=== PATIENT | female | born 1955 | race Caucasian/White ===

== ENCOUNTER 2016-11-02 11:14 | Inpatient (IN) | payer OTHER ==
[~2016-11-02] VITALS: Ht 154.9 cm; Wt 97.0 kg
[~2016-11-02 11:14] MED LIST: ACETAMINOPHEN-1 EAC1 PO; AMLODIPINE BESYL5 MG PO; ASPIR-LOW81 MG PO; Aspirin Chewable PO; CARVEDILOL12.5 MG PO; COREG12.5 M1 PO; CYMBALTA20 MG PO; Coreg PO; DOXYCYCLINE HY100 M3 PO; Diabeta,Micronase PO; FURO40I IV; FUROSEMIDE40 MG PO; GABAPENTIN300 MG PO; GLUCOPHAGE1000 MG PO; Glucophage PO; Habitrol,Nicoderm CQ TD; IMDUR30 MG PO; ISOSORBIDE MONO30 MG PO; Imdur PO; Keflex PO; LANTUS 10100 UNITS/ SC; LANTUS 3 M100 UNITS1 SC; LASIX20 MG PO; LASIX40 MG PO; LEVOTHYROXINE100 MCG PO; LIPITOR20 MG PO; LIPITOR40 MG PO; LISINOPRIL10 MG PO; LOPERAMIDE2 MG PO; LYRICA50 MG PO; Lasix PO; Levothroid,Synthroid PO; METFORMIN HCL1000 M1 PO; NAPROSYN375 MG PO; NEURONTIN600 MG PO; NOVOLOG100 UNIT/1 SC; OXYCODONE HCL5 MG PO; OXYCODONE-APAP1 EACH PO; PRINIVIL20 MG PO; PROAIR HFA8.5 GM IH; Pravachol PO; SYNTHROID100 MCG PO; SYNTHROID175 MCG PO; TRAMADOL HCL50 MG PO; ULTRAM50 MG PO; Zestril,Prinivil PO
[2016-11-02 12:20] LABS: BASOPHIL COUNT 0.1 K/uL (0-0.1); EOSINOPHIL (%) 2.4 % (0-5); EOSINOPHIL COUNT 0.3 K/uL (0-0.3); HEMATOCRIT 35.7 % (36.0-46.0); IMMATURE GRANULOCYTE (%) 0.7 % (0.0-0.7); IMMATURE GRANULOCYTE COUNT 0.1 K/uL; INSTRUMENT ABS NEUTROPHIL CT 9.6 K/uL; LYMPHOCYTE COUNT 2.6 K/uL (1.0-2.8); MCH 28.4 PG (29.0-34.0); MCHC 31.1 G/DL (30.0-36.0); MCV 91.3 FL (83-99); MEAN PLAT.VOLUME 9.4 uM^3 (9.5-12.4); MONOCYTE (%) 8.3 % (3-12); MONOCYTE COUNT 1.1 K/uL (0-0.8); NEUTROPHIL (%) 69.4 % (45-76); NEUTROPHIL COUNT 9.6 K/uL (1.8-6.4); PLATELET COUNT 402 K/uL (156-360); RED BLOOD COUNT 3.91 M/uL (3.80-5.20); WHITE BLOOD COUNT 13.8 K/uL (4.1-10.2)
[2016-11-02 12:30] LABS: CHLORIDE 110 mEq/L (99-109); SODIUM 135 mEq/L (136-147)
[2016-11-02 12:33] LABS: GLUCOSE 101 mg/dL (70-99)
[2016-11-02 12:34] LABS: ANION GAP 6 MEQ/L (2-14)
[2016-11-02 12:35] LABS: TOTAL BILIRUBIN 0.3 mg/dL (0.0-1.0)
[2016-11-02 12:36] LABS: ALKALINE PHOSPHATASE 104 IU/L (3-129); GFR ESTIMATE (CALCULATED) 17 mL/min/
[2016-11-02 12:37] LABS: UREA NITROGEN (BUN) 59 mg/dL (9-23)
[2016-11-02 14:42] LABS: ADD MIUA? YES; BILIRUBIN NEGATIVE; BLOOD NEGATIVE; COLOR YELLOW ((YELLOW)); GLUCOSE (STRIP) 50; KETONES NEGATIVE; LEUKOCYTES NEGATIVE; NITRITE NEGATIVE; PROTEIN (STRIP) 100; SPECIFIC GRAVITY 1.009 (1.000-1.030); UROBILINOGEN 0.2 MG/DL (0.2-1.0)
[2016-11-02 14:49] LABS: BACTERIA RARE /HPF; EPITHELIAL CELLS RARE /HPF; MUCUS TRACE /LPF; RED BLOOD CELLS 0-5 /HPF (0-5); UCUL ADDED? NO; WHITE BLOOD CELLS 0-5 /HPF (0-5)
[2016-11-02] MEDS ORDERED: NORVASC5 MG PO (15:49)
[2016-11-02] MEDS ORDERED: LYRICA100 MG PO (15:50)
[2016-11-02] MEDS ORDERED: LO-DOSE ASPIRIN81 M2 PO (15:50)
[2016-11-02] MEDS ORDERED: LASIX20 MG PO (15:51)
[2016-11-02] MEDS ORDERED: TRAMADOL HCL50 MG PO (15:52)
[2016-11-02] MEDS ORDERED: BACTRIM,SEPT1 TABLET PO (15:52)
[2016-11-02] MEDS ORDERED: ZESTRIL20 MG PO (15:53)
[2016-11-02 16:30] LABS: CREATINE KINASE 563 IU/L (1-294); TOTAL CK 563 IU/L (1-294)
[2016-11-02 16:37] LABS: CK-MB 14.3 ng/mL (0.0-4.9)
[2016-11-02 18:43] VITALS: BP 162/96
[2016-11-02 19:41] VITALS: BP 137/72
[2016-11-02 23:35] VITALS: BP 135/73
[2016-11-03 04:01] VITALS: BP 130/70
[2016-11-03 05:45] LABS: BASE EXCESS -5.8 mEq/L (-3 to +3); BICARBONATE 19.4 mEq/L (22-26); CARBOXY HGB 1.8 % (0-5); METHEMOGLOBIN 1.9 % (0-1.5); PCO2 36 mm Hg (35-45); PO2 54 mm Hg (80-100); pH 7.34 (7.35-7.45)
[2016-11-03 05:46] LABS: COMMENTS - BLOOD GASES C+; DEVICE NC; O2 FLOW 3 L/MIN; SITE LR
[2016-11-03 05:51] LABS: HEMATOCRIT 32.4 % (36.0-46.0); MCH 28.4 PG (29.0-34.0); MCHC 31.5 G/DL (30.0-36.0); MCV 90.3 FL (83-99); MEAN PLAT.VOLUME 9.5 uM^3 (9.5-12.4); PLATELET COUNT 393 K/uL (156-360); RBC DIS.WIDTH-CV 13.9 % (11.8-14.6); RBC DIS.WIDTH-SD 45.5 % (39-53); RED BLOOD COUNT 3.59 M/uL (3.80-5.20)
[2016-11-03 06:04] LABS: CHLORIDE 112 mEq/L (99-109); SODIUM 138 mEq/L (136-147)
[2016-11-03 06:07] LABS: D-DIMER ELISA 0.88 mg/L FEU (< 0.57)
[2016-11-03 06:07] LABS: ANION GAP 8 MEQ/L (2-14)
[2016-11-03 06:10] LABS: UREA NITROGEN (BUN) 46 mg/dL (9-23)
[2016-11-03 06:12] LABS: TROP-I INTERPRETATION NEGATIVE; TROPONIN-I 0.01 ng/mL (0.0-0.30)
[2016-11-03 06:21] LABS: GFR ESTIMATE (CALCULATED) 21 mL/min/; GLUCOSE 438 mg/dL (70-99); POTASSIUM 4.6 mEq/L (3.7-5.4)
[2016-11-03 07:46] VITALS: BP 112/56
[2016-11-03 09:49] LABS: ADD MIUA? YES; BILIRUBIN NEGATIVE; BLOOD LARGE; COLOR AMBER ((YELLOW)); GLUCOSE (STRIP) 50; KETONES NEGATIVE; LEUKOCYTES SMALL; NITRITE NEGATIVE; PROTEIN (STRIP) 100; SPECIFIC GRAVITY 1.014 (1.000-1.030); UROBILINOGEN 0.2 MG/DL (0.2-1.0)
[2016-11-03 10:00] LABS: RED BLOOD CELLS TNTC /HPF (0-5)
[2016-11-03 10:01] LABS: BACTERIA 1+ /HPF; EPITHELIAL CELLS 2+ /HPF; MUCUS NONE SEEN /LPF
[2016-11-03 10:02] LABS: CASTS PRESENT /LPF
[2016-11-03 10:11] LABS: AMPHETAMINES QUANT VALUE 0 NG/ML; BARBITUATES QUANT VALUE 0 NG/ML; BENZODIAZEPINES QUANT VALUE 0 NG/ML; BENZODIAZEPINES, URINE SCREEN Negative (200 ng/mL); MARIJUANA QUANT VALUE 0 NG/ML; OPIATES QUANTITATIVE VALUE 0 NG/ML; PHENCYCLIDINE QUANT VALUE 0 NG/ML
[2016-11-03 11:51] VITALS: BP 128/60
[2016-11-03 12:10] LABS: POINT-OF-CARE METER ID UU13113717
[2016-11-03 16:09] VITALS: BP 104/66
[2016-11-03 20:26] VITALS: BP 129/67
[2016-11-03 23:52] VITALS: BP 147/65
[2016-11-04 03:11] LABS: POINT-OF-CARE METER ID UU13113717
[2016-11-04 06:16] LABS: POINT-OF-CARE METER ID UU13113717
[2016-11-04 06:21] LABS: BASOPHIL COUNT 0.1 K/uL (0-0.1); EOSINOPHIL (%) 0.8 % (0-5); EOSINOPHIL COUNT 0.1 K/uL (0-0.3); HEMATOCRIT 27.7 % (36.0-46.0); IMMATURE GRANULOCYTE (%) 0.6 % (0.0-0.7); IMMATURE GRANULOCYTE COUNT 0.1 K/uL; INSTRUMENT ABS NEUTROPHIL CT 8.8 K/uL; LYMPHOCYTE COUNT 2.3 K/uL (1.0-2.8); MCH 29.2 PG (29.0-34.0); MCHC 31.8 G/DL (30.0-36.0); MONOCYTE (%) 9.5 % (3-12); MONOCYTE COUNT 1.2 K/uL (0-0.8); NEUTROPHIL (%) 70.2 % (45-76); NEUTROPHIL COUNT 8.8 K/uL (1.8-6.4); PLATELET COUNT 314 K/uL (156-360); RBC DIS.WIDTH-CV 14.6 % (11.8-14.6); RBC DIS.WIDTH-SD 48.7 % (39-53); RED BLOOD COUNT 3.01 M/uL (3.80-5.20); WHITE BLOOD COUNT 12.5 K/uL (4.1-10.2)
[2016-11-04 06:50] LABS: ANION GAP 6 MEQ/L (2-14); CHLORIDE 113 MEQ/L (99-109); GFR ESTIMATE (CALCULATED) 22 mL/min/; POTASSIUM 4.8 MEQ/L (3.7-5.4); SAMPLE HEMOLYSIS CHECK 0; SAMPLE ICTERIC CHECK 0; SAMPLE LIPEMIA CHECK 0; SODIUM 140 MEQ/L (136-147); UREA NITROGEN (BUN) 43 mg/dL (9-23)
[2016-11-04 06:52] LABS: GLUCOSE 189 mg/dL (70-99)
[2016-11-04 06:57] LABS: VANCOMYCIN, TROUGH 9.5 MCG/ML (10-20)
[2016-11-04 07:59] VITALS: BP 179/79
[2016-11-04 10:03] LABS: POINT-OF-CARE METER ID UU13113717
[2016-11-04 10:20] LABS: Estimated Average Glucose 321 mg/dL (70-123); HEMOGLOBIN A1c (GLYCOHEMOGLOB) 12.8 % HGB (Below 5.7)
[2016-11-04 10:26] LABS: FERRITIN 106 NG/ML (10-291)
[2016-11-04 10:56] LABS: IRON 15 MCG/DL (35-150)
[2016-11-04 11:29] VITALS: BP 121/55
[2016-11-04 11:40] LABS: UR CREATININE CONCENTRATION 101.3 MG/DL; URINE TOTAL PROTEIN 431 MG/DL (0-10)
[2016-11-04 16:07] VITALS: BP 186/96
[2016-11-04 23:27] VITALS: BP 154/70
[2016-11-05 06:34] LABS: EOSINOPHIL (%) 2.6 % (0-5); EOSINOPHIL COUNT 0.3 K/uL (0-0.3); HEMATOCRIT 29.1 % (36.0-46.0); IMMATURE GRANULOCYTE (%) 0.7 % (0.0-0.7); IMMATURE GRANULOCYTE COUNT 0.1 K/uL; INSTRUMENT ABS NEUTROPHIL CT 7.9 K/uL; LYMPHOCYTE COUNT 2.5 K/uL (1.0-2.8); MCH 28.9 PG (29.0-34.0); MCHC 31.3 G/DL (30.0-36.0); MCV 92.4 FL (83-99); MEAN PLAT.VOLUME 9.6 uM^3 (9.5-12.4); MONOCYTE (%) 10.3 % (3-12); MONOCYTE COUNT 1.3 K/uL (0-0.8); NEUTROPHIL (%) 65.7 % (45-76); NEUTROPHIL COUNT 7.9 K/uL (1.8-6.4); PLATELET COUNT 342 K/uL (156-360); RBC DIS.WIDTH-SD 47.2 % (39-53); RED BLOOD COUNT 3.15 M/uL (3.80-5.20); WHITE BLOOD COUNT 12.1 K/uL (4.1-10.2)
[2016-11-05 06:55] LABS: C3 COMPLEMENT 130 MG/DL (58-170); C4 COMPLEMENT 51 MG/DL (10-40)
[2016-11-05 07:06] LABS: ANION GAP 5 MEQ/L (2-14); CHLORIDE 114 MEQ/L (99-109); GFR ESTIMATE (CALCULATED) 30 mL/min/; GLUCOSE 176 mg/dL (70-99); SAMPLE HEMOLYSIS CHECK 0; SAMPLE ICTERIC CHECK 0; SAMPLE LIPEMIA CHECK 0; SODIUM 140 MEQ/L (136-147); UREA NITROGEN (BUN) 34 mg/dL (9-23)
[2016-11-05 07:43] VITALS: BP 195/83
[2016-11-05 08:51] LABS: INTACT PARATHYROID HORMONE 228 pg/mL (10-69)
[2016-11-05 09:12] VITALS: BP 180/78
[2016-11-05 12:34] LABS: POINT-OF-CARE METER ID UU14174225
[2016-11-05 15:09] VITALS: BP 152/91
[2016-11-06] VITALS: BP 165/73
[2016-11-06 07:08] LABS: EOSINOPHIL (%) 2.6 % (0-5); EOSINOPHIL COUNT 0.3 K/uL (0-0.3); HEMATOCRIT 28.8 % (36.0-46.0); IMMATURE GRANULOCYTE (%) 0.5 % (0.0-0.7); IMMATURE GRANULOCYTE COUNT 0.1 K/uL; INSTRUMENT ABS NEUTROPHIL CT 6.5 K/uL; LYMPHOCYTE COUNT 2.5 K/uL (1.0-2.8); MCH 28.6 PG (29.0-34.0); MCHC 31.3 G/DL (30.0-36.0); MCV 91.4 FL (83-99); MEAN PLAT.VOLUME 9.7 uM^3 (9.5-12.4); MONOCYTE (%) 9.7 % (3-12); NEUTROPHIL (%) 62.4 % (45-76); NEUTROPHIL COUNT 6.5 K/uL (1.8-6.4); PLATELET COUNT 363 K/uL (156-360); RBC DIS.WIDTH-CV 14.1 % (11.8-14.6); RBC DIS.WIDTH-SD 47.4 % (39-53); RED BLOOD COUNT 3.15 M/uL (3.80-5.20); WHITE BLOOD COUNT 10.4 K/uL (4.1-10.2)
[2016-11-06 07:30] LABS: ANION GAP 8 MEQ/L (2-14); CHLORIDE 114 MEQ/L (99-109); GFR ESTIMATE (CALCULATED) 35 mL/min/; POTASSIUM 4.8 MEQ/L (3.7-5.4); SAMPLE HEMOLYSIS CHECK 1; SAMPLE ICTERIC CHECK 0; SAMPLE LIPEMIA CHECK 0; SODIUM 144 MEQ/L (136-147); UREA NITROGEN (BUN) 29 mg/dL (9-23)
[2016-11-06 07:33] LABS: GLUCOSE 103 mg/dL (70-99)
[2016-11-06 07:46] VITALS: BP 164/82
[2016-11-06 10:29] LABS: AHBS INDEX 0.13; HBSG INDEX 0.23; HEPATITIS B SURFACE ANTIBODY Nonreactive
[2016-11-06 15:42] VITALS: BP 152/72
[2016-11-06 17:17] LABS: POINT-OF-CARE METER ID UU13113717
[2016-11-07 00:42] VITALS: BP 159/72
[2016-11-07 07:15] LABS: ANION GAP 8 MEQ/L (2-14); CHLORIDE 110 MEQ/L (99-109); GFR ESTIMATE (CALCULATED) 32 mL/min/; GLUCOSE 117 mg/dL (70-99); POTASSIUM 5.3 MEQ/L (3.7-5.4); SAMPLE HEMOLYSIS CHECK 1; SAMPLE ICTERIC CHECK 0; SAMPLE LIPEMIA CHECK 0; SODIUM 140 MEQ/L (136-147); UREA NITROGEN (BUN) 30 mg/dL (9-23)
[2016-11-07 07:47] VITALS: BP 152/70
[2016-11-07 11:58] LABS: POINT-OF-CARE METER ID UU13113717
[2016-11-07] MEDS ORDERED: DOXYCYCLINE HY100 MG PO (12:00)
[2016-11-07] MEDS ORDERED: KEFLEX500 MG PO (12:01)
[2016-11-07] MEDS ORDERED: NORVASC5 MG PO (12:02)
[2016-11-07] MEDS ORDERED: ACIDOPHILUS LA1 EACH PO (12:05)
[2016-11-07] MEDS ORDERED: CALCITRIOL0.25 MCG PO (12:06)
[2016-11-07] MEDS ORDERED: ERGOCALCIF50000 UNIT PO (12:06)
[2016-11-07 12:27] VITALS: BP 148/68
[2016-11-07 14:32] LABS: IFE GEL NO. 85-3
[2016-11-11 11:41] LABS: IFE GEL NO. 86-3
== END 2016-11-07 14:55 | disposition home health service (06) | DRG 602 ==
LOC: EME 11:14 → 5SOUTH 14:20 → EDOF 14:20 → 5SOUTH 16:55
PROVIDERS: Emergency Medicine; Hospitalist; Internal Medicine
DX: L03.115 Cellulitis of right lower limb (principal); L03.116 Cellulitis of left lower limb; G93.41 Metabolic encephalopathy; N17.9 Acute kidney failure, unspecified; E11.622 Type 2 diabetes mellitus with other skin ulcer; L97.829 Non-pressure chronic ulcer of other part of left lower leg with unspecified severity; L97.819 Non-pressure chronic ulcer of other part of right lower leg with unspecified severity; E11.21 Type 2 diabetes mellitus with diabetic nephropathy; E11.22 Type 2 diabetes mellitus with diabetic chronic kidney disease; I13.0 Hypertensive heart and chronic kidney disease with heart failure and stage 1 through stage 4 chronic kidney disease, or unspecified chronic kidney disease; N18.4 Chronic kidney disease, stage 4 (severe); I50.22 Chronic systolic (congestive) heart failure; R09.02 Hypoxemia; E11.42 Type 2 diabetes mellitus with diabetic polyneuropathy; E11.649 Type 2 diabetes mellitus with hypoglycemia without coma; E11.51 Type 2 diabetes mellitus with diabetic peripheral angiopathy without gangrene; D50.9 Iron deficiency anemia, unspecified; N25.81 Secondary hyperparathyroidism of renal origin; J44.9 Chronic obstructive pulmonary disease, unspecified; E55.9 Vitamin D deficiency, unspecified; E03.9 Hypothyroidism, unspecified; F32.9 Major depressive disorder, single episode, unspecified; I25.10 Atherosclerotic heart disease of native coronary artery without angina pectoris; K58.9 Irritable bowel syndrome, unspecified; G43.909 Migraine, unspecified, not intractable, without status migrainosus; R29.6 Repeated falls; I89.0 Lymphedema, not elsewhere classified; M54.5 Low back pain; M19.90 Unspecified osteoarthritis, unspecified site; H40.9 Unspecified glaucoma; B35.3 Tinea pedis; I25.2 Old myocardial infarction; Z79.4 Long term (current) use of insulin; Z86.14 Personal history of Methicillin resistant Staphylococcus aureus infection; Z87.891 Personal history of nicotine dependence; E66.9 Obesity, unspecified; Z68.41 Body mass index [BMI] 40.0-44.9, adult
CPT/HCPCS: 36600; 70450; 71010; 72070; 72100; 76770; 80048; 80053; 80069; 80202; 80306 90; 81003; 82140; 82306; 82550; 82550 91; 82553; 82570; 82607; 82728; 82746; 82803; 82948; 83036; 83540; 83605; 83880; 83970; 84156; 84466; 84484; 85025; 85027; 85379; 85651; 86160; 86334; 86335; 86706; 86803; 87040; 87340; 93005; 93306; 93926; 93970; 94799; 99202; 99281; 99285; A6260; J0690; J1644; J1756; J1815; J1885; J2310; J2543; J3370; J7042; J7050; J7120

== ENCOUNTER 2016-12-18 18:22 | Emergency (ER) | payer OTHER ==
[~2016-12-18] VITALS: Ht 157.5 cm; Wt 105.1 kg
[~2016-12-18 18:22] MED LIST changes: +ACIDOPHILUS LA1 EACH PO; +BACTRIM,SEPT1 TABLET PO; +CALCITRIOL0.25 MCG PO; +DOXYCYCLINE HY100 MG PO; +ERGOCALCIF50000 UNIT PO; +KEFLEX500 MG PO; +LO-DOSE ASPIRIN81 M2 PO; +LYRICA100 MG PO; +NORVASC5 MG PO; +ZESTRIL20 MG PO
[2016-12-18 18:31] VITALS: BP 170/100
[2016-12-18 20:04] LABS: HEMATOCRIT 32.3 % (36.0-46.0); MCH 28.2 PG (29.0-34.0); MCHC 31.6 G/DL (30.0-36.0); MCV 89.2 FL (83-99); PLATELET COUNT 318 K/uL (156-360); RBC DIS.WIDTH-CV 14.1 % (11.8-14.6); RED BLOOD COUNT 3.62 M/uL (3.80-5.20); WHITE BLOOD COUNT 10.5 K/uL (4.1-10.2)
[2016-12-18 20:06] LABS: CARBON DIOXIDE (BICARBONATE) 29.1 MEQ/L (20-31)
[2016-12-18 20:20] LABS: CHLORIDE 107 mEq/L (99-109); POTASSIUM 4.8 mEq/L (3.7-5.4); SODIUM 139 mEq/L (136-147)
[2016-12-18 20:22] LABS: GLUCOSE 250 mg/dL (70-99)
[2016-12-18 20:23] LABS: ANION GAP 9 MEQ/L (2-14)
[2016-12-18 20:25] LABS: GFR ESTIMATE (CALCULATED) 23 mL/min/
[2016-12-18 20:26] LABS: UREA NITROGEN (BUN) 28 mg/dL (9-23)
[2016-12-18 20:34] LABS: TROP-I INTERPRETATION NEGATIVE; TROPONIN-I 0.02 ng/mL (0.0-0.30)
[2016-12-19] MEDS ORDERED: LANTUS 3 M100 UNITS1 SC (22:42)
[2016-12-19] MEDS ORDERED: FUROSEMIDE20 MG PO (22:43)
[2016-12-19] MEDS ORDERED: TRAMADOL HCL50 MG PO (22:43)
== END 2016-12-18 21:58 | disposition home or self-care (01) ==
LOC: EME 18:22
PROVIDERS: Emergency Medicine
DX: I50.9 Heart failure, unspecified (principal); R09.02 Hypoxemia; J44.9 Chronic obstructive pulmonary disease, unspecified; I25.2 Old myocardial infarction; E78.5 Hyperlipidemia, unspecified; Z79.82 Long term (current) use of aspirin; Z87.891 Personal history of nicotine dependence
CPT/HCPCS: 71020; 80048; 82803; 83605; 83880; 84484; 85027; 85379; 87040; 93005; 94640; 99281; 99284; J1940

== ENCOUNTER 2016-12-19 16:43 | Inpatient (IN) | payer OTHER ==
[~2016-12-19] VITALS: Ht 157.5 cm; Wt 103.9 kg
[2016-12-19 18:24] LABS: BASOPHIL COUNT 0.1 K/uL (0-0.1); EOSINOPHIL (%) 2.1 % (0-5); EOSINOPHIL COUNT 0.2 K/uL (0-0.3); HEMATOCRIT 30.5 % (36.0-46.0); IMMATURE GRANULOCYTE (%) 0.3 % (0.0-0.7); INSTRUMENT ABS NEUTROPHIL CT 6.1 K/uL; LYMPHOCYTE COUNT 2.9 K/uL (1.0-2.8); MCH 28.3 PG (29.0-34.0); MCHC 31.8 G/DL (30.0-36.0); MCV 88.9 FL (83-99); MONOCYTE (%) 8.7 % (3-12); MONOCYTE COUNT 0.9 K/uL (0-0.8); NEUTROPHIL COUNT 6.1 K/uL (1.8-6.4); RBC DIS.WIDTH-CV 14.2 % (11.8-14.6); RED BLOOD COUNT 3.43 M/uL (3.80-5.20); WHITE BLOOD COUNT 10.1 K/uL (4.1-10.2)
[2016-12-19 18:30] LABS: CHLORIDE 104 mEq/L (99-109); POTASSIUM 4.5 mEq/L (3.7-5.4); SODIUM 137 mEq/L (136-147)
[2016-12-19 18:32] LABS: GLUCOSE 255 mg/dL (70-99)
[2016-12-19 18:33] LABS: ANION GAP 8 MEQ/L (2-14)
[2016-12-19 18:36] LABS: GFR ESTIMATE (CALCULATED) 25 mL/min/
[2016-12-19 18:37] LABS: UREA NITROGEN (BUN) 26 mg/dL (9-23)
[2016-12-19 18:40] LABS: TROP-I INTERPRETATION NEGATIVE; TROPONIN-I 0.01 ng/mL (0.0-0.30)
[2016-12-19 19:23] LABS: MEAN PLAT.VOLUME 10.3 uM^3 (9.5-12.4); PLAT.SUFFICIENCY ADEQUATE
[2016-12-19 19:26] LABS: PLATELET COUNT 216 K/uL (156-360)
[2016-12-19 21:20] LABS: ADD MIUA? YES; BILIRUBIN NEGATIVE; BLOOD SMALL; COLOR YELLOW ((YELLOW)); GLUCOSE (STRIP) >=500; KETONES NEGATIVE; LEUKOCYTES NEGATIVE; NITRITE NEGATIVE; PROTEIN (STRIP) >=500; SPECIFIC GRAVITY 1.014 (1.000-1.030); UROBILINOGEN 0.2 MG/DL (0.2-1.0)
[2016-12-19 21:27] LABS: BACTERIA NONE SEEN /HPF; EPITHELIAL CELLS 1+ /HPF; GRANULAR CASTS 0-5 /LPF; MUCUS TRACE /LPF; RED BLOOD CELLS 0-5 /HPF (0-5); UCUL ADDED? NO; WHITE BLOOD CELLS 0-5 /HPF (0-5)
[2016-12-19] MEDS ORDERED: LANTUS 3 M100 UNITS1 SC (22:42)
[2016-12-19] MEDS ORDERED: TRAMADOL HCL50 MG PO (22:43)
[2016-12-19] MEDS ORDERED: FUROSEMIDE20 MG PO (22:43)
[2016-12-19 23:43] VITALS: BP 162/84
[2016-12-20 01:46] LABS: TROP-I INTERPRETATION NEGATIVE; TROPONIN-I 0.01 ng/mL (0.0-0.30)
[2016-12-20 04:00] VITALS: BP 154/72
[2016-12-20 05:48] LABS: TROP-I INTERPRETATION NEGATIVE; TROPONIN-I 0.02 ng/mL (0.0-0.30)
[2016-12-20 08:51] VITALS: BP 193/83
[2016-12-20 09:40] VITALS: BP 140/70
[2016-12-20 12:43] LABS: POINT-OF-CARE METER ID UU14162513
== END 2016-12-20 14:10 | disposition left against medical advice (07) | DRG 292 ==
LOC: EME 16:43 → EDOF 22:29 → 5WEST 22:29 → EDOF 22:29 → ENRESERV 22:31 → 5WEST 23:27 → ENRESERV 12-20 12:10 → 5WEST 12-20 14:10
PROVIDERS: Emergency Medicine; Hospitalist
DX: I50.9 Heart failure, unspecified (principal); N17.9 Acute kidney failure, unspecified; Z68.41 Body mass index [BMI] 40.0-44.9, adult; I13.0 Hypertensive heart and chronic kidney disease with heart failure and stage 1 through stage 4 chronic kidney disease, or unspecified chronic kidney disease; E11.22 Type 2 diabetes mellitus with diabetic chronic kidney disease; I25.2 Old myocardial infarction; R09.02 Hypoxemia; F41.9 Anxiety disorder, unspecified; R79.1 Abnormal coagulation profile; F32.9 Major depressive disorder, single episode, unspecified; N18.9 Chronic kidney disease, unspecified; E66.9 Obesity, unspecified; E78.5 Hyperlipidemia, unspecified; J44.9 Chronic obstructive pulmonary disease, unspecified; E03.9 Hypothyroidism, unspecified; E11.40 Type 2 diabetes mellitus with diabetic neuropathy, unspecified; Z87.891 Personal history of nicotine dependence; Z91.14 Patient's other noncompliance with medication regimen
CPT/HCPCS: 71020; 78582; 80048; 81003; 82803; 82948; 83605; 83880; 84484; 85025; 85027; 85379; 85610; 85730; 87040; 93005; 94640; 94799; 99281; 99284; 99285; A9540; A9567; G0378; J1644; J1940; J7030

== ENCOUNTER 2017-07-28 13:30 | Inpatient (IN) | payer OTHER ==
[~2017-07-28] VITALS: Ht 157.5 cm; Wt 92.1 kg
[~2017-07-28 13:30] MED LIST changes: -SYNTHROID175 MCG PO; +SYNTHROID200 MCG PO
[2017-07-28 15:52] LABS: HEMATOCRIT 33.9 % (36.0-46.0); HEMOGLOBIN 10.8 G/DL (11.9-15.5); MCH 26.3 PG (29.0-34.0); MCHC 31.9 G/DL (30.0-36.0); MCV 82.5 FL (83-99); PLATELET COUNT 253 K/uL (156-360); RBC DIS.WIDTH-CV 17.4 % (11.8-14.6); RBC DIS.WIDTH-SD 52.4 % (39-53); RED BLOOD COUNT 4.11 M/uL (3.80-5.20); WHITE BLOOD COUNT 21.2 K/uL (4.1-10.2)
[2017-07-28 16:01] LABS: ALBUMIN 2.6 g/dL (3.2-4.8); CHLORIDE 112 mEq/L (99-109); POTASSIUM 4.4 mEq/L (3.7-5.4); SODIUM 139 mEq/L (136-147)
[2017-07-28 16:03] LABS: GLUCOSE 98 mg/dL (70-99)
[2017-07-28 16:04] LABS: TOTAL PROTEIN 6.4 g/dL (6.4-8.3)
[2017-07-28 16:05] LABS: TOTAL BILIRUBIN 0.3 mg/dL (0.0-1.0)
[2017-07-28 16:07] LABS: ALKALINE PHOSPHATASE 95 IU/L (3-129); CREATININE 2.1 mg/dL (0.6-1.3); GFR ESTIMATE (CALCULATED) 25 mL/min/
[2017-07-28 16:08] LABS: UREA NITROGEN (BUN) 34 mg/dL (9-23)
[2017-07-28 16:09] LABS: AST (GOT) 19 IU/L (2-34)
[2017-07-28 16:10] LABS: ALT (GPT) 14 IU/L (3-49)
[2017-07-28 16:20] LABS: APPEARANCE CLOUDY ((CLEAR)); BILIRUBIN NEGATIVE; BLOOD SMALL; COLOR YELLOW ((YELLOW)); GLUCOSE (STRIP) 50; KETONES NEGATIVE; LEUKOCYTES LARGE; NITRITE NEGATIVE; PROTEIN (STRIP) >=500; SPECIFIC GRAVITY 1.013 (1.000-1.030); UROBILINOGEN 0.2 MG/DL (0.2-1.0)
[2017-07-28 17:06] LABS: RED BLOOD CELLS RARE /HPF (0-5)
[2017-07-28 17:07] LABS: EPITHELIAL CELLS 2+ /HPF; MUCUS NONE SEEN /LPF; WHITE BLOOD CELLS 30-40 /HPF (0-5)
[2017-07-28 17:08] LABS: AMORPHOUS URATES CRYSTALS 1+; BACTERIA 2+ /HPF; UCUL ADDED? YES
[2017-07-28 17:44] LABS: TROP-I INTERPRETATION NEGATIVE; TROPONIN-I 0.02 ng/mL (0.0-0.30)
[2017-07-28] MEDS ORDERED: AMLODIPINE BESYL5 MG PO (19:24)
[2017-07-28] MEDS ORDERED: ERGOCALCIF50000 UNIT PO (19:26)
[2017-07-28] MEDS ORDERED: LEVOTHYROXINE25 MCG PO (19:34)
[2017-07-28] MEDS ORDERED: LANTUS 10100 UNITS/ SC (19:34)
[2017-07-28] MEDS ORDERED: NOVOLOG 10100 UNITS/ SC (19:35)
[2017-07-28] MEDS ORDERED: LISINOPRIL20 MG PO (19:36)
[2017-07-28 23:42] VITALS: BP 157/81
[2017-07-29 03:56] VITALS: BP 166/70
[2017-07-29 06:04] LABS: HEMATOCRIT 33.5 % (36.0-46.0); HEMOGLOBIN 10.5 G/DL (11.9-15.5); MCH 26.1 PG (29.0-34.0); MCHC 31.3 G/DL (30.0-36.0); MCV 83.1 FL (83-99); PLATELET COUNT 283 K/uL (156-360); RBC DIS.WIDTH-CV 17.9 % (11.8-14.6); RBC DIS.WIDTH-SD 54.2 % (39-53); RED BLOOD COUNT 4.03 M/uL (3.80-5.20); WHITE BLOOD COUNT 17.1 K/uL (4.1-10.2)
[2017-07-29 06:21] LABS: CHLORIDE 114 MEQ/L (99-109); CREATININE 1.9 MG/DL (0.6-1.3); GFR ESTIMATE (CALCULATED) 28 mL/min/; POTASSIUM 3.9 MEQ/L (3.7-5.4); SODIUM 140 MEQ/L (136-147); UREA NITROGEN (BUN) 30 mg/dL (9-23)
[2017-07-29 06:28] LABS: GLUCOSE 49 mg/dL (70-99)
[2017-07-29 08:04] VITALS: BP 148/86
[2017-07-29 12:36] VITALS: BP 170/78
[2017-07-29 16:00] VITALS: BP 132/63
[2017-07-29 19:24] VITALS: BP 152/68
[2017-07-29 23:41] VITALS: BP 140/70
[2017-07-30 03:49] VITALS: BP 168/77
[2017-07-30 06:16] LABS: HEMATOCRIT 33.3 % (36.0-46.0); HEMOGLOBIN 10.4 G/DL (11.9-15.5); MCH 26.1 PG (29.0-34.0); MCHC 31.2 G/DL (30.0-36.0); MCV 83.7 FL (83-99); PLATELET COUNT 307 K/uL (156-360); RBC DIS.WIDTH-CV 18.2 % (11.8-14.6); RBC DIS.WIDTH-SD 55.5 % (39-53); RED BLOOD COUNT 3.98 M/uL (3.80-5.20); WHITE BLOOD COUNT 15.7 K/uL (4.1-10.2)
[2017-07-30 06:50] LABS: CHLORIDE 115 MEQ/L (99-109); CREATININE 1.8 MG/DL (0.6-1.3); GFR ESTIMATE (CALCULATED) 30 mL/min/; POTASSIUM 3.9 MEQ/L (3.7-5.4); SODIUM 142 MEQ/L (136-147); UREA NITROGEN (BUN) 27 mg/dL (9-23)
[2017-07-30 06:54] LABS: GLUCOSE 129 mg/dL (70-99); PREALBUMIN 4.6 mg/dL (10-40)
[2017-07-30 07:09] VITALS: BP 173/81
[2017-07-30 11:08] VITALS: BP 177/85
[2017-07-30 15:05] VITALS: BP 138/80
[2017-07-30 19:47] VITALS: BP 169/76
[2017-07-30 23:57] VITALS: BP 113/62
[2017-07-31 03:45] VITALS: BP 143/82
[2017-07-31 06:30] LABS: ALBUMIN 2.1 G/DL (3.2-4.8); CHLORIDE 113 MEQ/L (99-109); CREATININE 1.8 MG/DL (0.6-1.3); GFR ESTIMATE (CALCULATED) 30 mL/min/; GLUCOSE 166 mg/dL (70-99); PHOSPHORUS 2.8 mg/dL (2.5-4.9); SODIUM 141 MEQ/L (136-147); UREA NITROGEN (BUN) 28 mg/dL (9-23)
[2017-07-31 07:11] VITALS: BP 150/80
[2017-07-31 07:56] LABS: BASOPHIL (%) 0.5 % (0-1); BASOPHIL COUNT 0.1 K/uL (0-0.1); EOSINOPHIL (%) 1.2 % (0-5); EOSINOPHIL COUNT 0.2 K/uL (0-0.3); HEMATOCRIT 34.1 % (36.0-46.0); HEMOGLOBIN 10.6 G/DL (11.9-15.5); IMMATURE GRANULOCYTE (%) 0.6 % (0.0-0.7); LYMPHOCYTE (%) 12.1 % (15-42); LYMPHOCYTE COUNT 1.7 K/uL (1.0-2.8); MCH 26.2 PG (29.0-34.0); MCHC 31.1 G/DL (30.0-36.0); MCV 84.4 FL (83-99); MONOCYTE (%) 6.1 % (3-12); MONOCYTE COUNT 0.9 K/uL (0-0.8); NEUTROPHIL (%) 79.5 % (45-76); NEUTROPHIL COUNT 11.2 K/uL (1.8-6.4); PLATELET COUNT 357 K/uL (156-360); RBC DIS.WIDTH-CV 18.6 % (11.8-14.6); RBC DIS.WIDTH-SD 57.7 % (39-53); RED BLOOD COUNT 4.04 M/uL (3.80-5.20); WHITE BLOOD COUNT 14.1 K/uL (4.1-10.2)
[2017-07-31 11:36] VITALS: BP 138/76
[2017-07-31 18:51] VITALS: BP 130/71
[2017-07-31 20:04] VITALS: BP 176/70
[2017-07-31 23:59] VITALS: BP 170/64
[2017-08-01 03:55] VITALS: BP 160/80
[2017-08-01 06:05] LABS: HEMATOCRIT 32.2 % (36.0-46.0); MCH 26.2 PG (29.0-34.0); MCHC 31.1 G/DL (30.0-36.0); MCV 84.3 FL (83-99); PLATELET COUNT 347 K/uL (156-360); RBC DIS.WIDTH-CV 18.3 % (11.8-14.6); RBC DIS.WIDTH-SD 55.8 % (39-53); RED BLOOD COUNT 3.82 M/uL (3.80-5.20); WHITE BLOOD COUNT 15.8 K/uL (4.1-10.2)
[2017-08-01 06:28] LABS: CHLORIDE 109 MEQ/L (99-109); CREATININE 1.9 MG/DL (0.6-1.3); GFR ESTIMATE (CALCULATED) 28 mL/min/; GLUCOSE 193 mg/dL (70-99); POTASSIUM 4.3 MEQ/L (3.7-5.4); SODIUM 138 MEQ/L (136-147); UREA NITROGEN (BUN) 28 mg/dL (9-23)
[2017-08-01 08:25] VITALS: BP 158/81
[2017-08-01 11:30] VITALS: BP 148/76
[2017-08-01 18:11] VITALS: BP 162/82
[2017-08-01 19:26] VITALS: BP 156/78
[2017-08-01 23:51] VITALS: BP 160/76
[2017-08-02 03:51] VITALS: BP 170/72
[2017-08-02 06:13] LABS: HEMATOCRIT 31.2 % (36.0-46.0); HEMOGLOBIN 9.5 G/DL (11.9-15.5); MCH 25.1 PG (29.0-34.0); MCHC 30.4 G/DL (30.0-36.0); MCV 82.5 FL (83-99); PLATELET COUNT 313 K/uL (156-360); RBC DIS.WIDTH-CV 17.8 % (11.8-14.6); RBC DIS.WIDTH-SD 53.9 % (39-53); RED BLOOD COUNT 3.78 M/uL (3.80-5.20); WHITE BLOOD COUNT 12.1 K/uL (4.1-10.2)
[2017-08-02 06:35] LABS: CHLORIDE 108 MEQ/L (99-109); CREATININE 1.8 MG/DL (0.6-1.3); GFR ESTIMATE (CALCULATED) 30 mL/min/; GLUCOSE 169 mg/dL (70-99); POTASSIUM 4.1 MEQ/L (3.7-5.4); SODIUM 136 MEQ/L (136-147); UREA NITROGEN (BUN) 31 mg/dL (9-23)
[2017-08-02 07:24] VITALS: BP 189/88
[2017-08-02 15:35] VITALS: BP 188/74
[2017-08-03 00:31] VITALS: BP 160/80
[2017-08-03 06:37] LABS: HEMATOCRIT 29.1 % (36.0-46.0); MCH 25.8 PG (29.0-34.0); MCHC 30.9 G/DL (30.0-36.0); MCV 83.4 FL (83-99); PLATELET COUNT 285 K/uL (156-360); RBC DIS.WIDTH-CV 17.8 % (11.8-14.6); RBC DIS.WIDTH-SD 53.3 % (39-53); RED BLOOD COUNT 3.49 M/uL (3.80-5.20); WHITE BLOOD COUNT 10.1 K/uL (4.1-10.2)
[2017-08-03 07:01] LABS: CHLORIDE 106 MEQ/L (99-109); CREATININE 1.8 MG/DL (0.6-1.3); GFR ESTIMATE (CALCULATED) 30 mL/min/; GLUCOSE 201 mg/dL (70-99); POTASSIUM 3.9 MEQ/L (3.7-5.4); SODIUM 134 MEQ/L (136-147); UREA NITROGEN (BUN) 33 mg/dL (9-23)
[2017-08-03 08:00] VITALS: BP 118/68
[2017-08-03] MEDS ORDERED: CARVEDILOL12.5 MG PO (12:30)
[2017-08-03] MEDS ORDERED: LANTUS 10100 UNITS/ SC (12:30)
[2017-08-03] MEDS ORDERED: DOXYCYCLINE HY100 MG PO (12:30)
[2017-08-03] MEDS ORDERED: IMDUR60 MG PO (12:30)
[2017-08-03 16:01] VITALS: BP 174/79
[2017-08-03 20:21] VITALS: BP 188/85
[2017-08-04] VITALS: BP 156/78
[2017-08-04 06:59] LABS: BASOPHIL (%) 0.6 % (0-1); BASOPHIL COUNT 0.1 K/uL (0-0.1); EOSINOPHIL (%) 2.8 % (0-5); EOSINOPHIL COUNT 0.3 K/uL (0-0.3); HEMATOCRIT 31.4 % (36.0-46.0); HEMOGLOBIN 9.7 G/DL (11.9-15.5); IMMATURE GRANULOCYTE (%) 0.7 % (0.0-0.7); LYMPHOCYTE COUNT 2.1 K/uL (1.0-2.8); MCH 25.8 PG (29.0-34.0); MCHC 30.9 G/DL (30.0-36.0); MCV 83.5 FL (83-99); MONOCYTE (%) 9.5 % (3-12); MONOCYTE COUNT 0.9 K/uL (0-0.8); NEUTROPHIL (%) 64.4 % (45-76); NEUTROPHIL COUNT 6.1 K/uL (1.8-6.4); PLATELET COUNT 308 K/uL (156-360); RBC DIS.WIDTH-CV 17.9 % (11.8-14.6); RBC DIS.WIDTH-SD 53.8 % (39-53); RED BLOOD COUNT 3.76 M/uL (3.80-5.20); WHITE BLOOD COUNT 9.5 K/uL (4.1-10.2)
[2017-08-04 07:22] LABS: CHLORIDE 108 MEQ/L (99-109); CREATININE 1.9 MG/DL (0.6-1.3); GFR ESTIMATE (CALCULATED) 28 mL/min/; POTASSIUM 4.6 MEQ/L (3.7-5.4); SODIUM 139 MEQ/L (136-147); UREA NITROGEN (BUN) 34 mg/dL (9-23)
[2017-08-04 07:31] LABS: GLUCOSE 79 mg/dL (70-99)
[2017-08-04 08:13] VITALS: BP 156/80
[2017-08-04 15:05] VITALS: BP 152/69
[2017-08-04] MEDS ORDERED: VASHE WOUND S1000 ML IR (15:58)
== END 2017-08-04 16:03 | disposition home health service (06) | DRG 602 ==
LOC: EME 13:30 → 5SOUTH 19:55 → EDOF 19:55 → ENRESERV 19:57 → 5SOUTH 21:05
PROVIDERS: Emergency Medicine Emergency Medical Services; Hospitalist; Internal Medicine; Physician Assistant; Physician Assistant Medical
PROC: 0H98XZZ Drainage of Buttock Skin, External Approach (ICD-10-PCS; principal; 2017-07-28)
DX: L02.31 Cutaneous abscess of buttock (principal); G93.49 Other encephalopathy; E87.2 Acidosis; N39.0 Urinary tract infection, site not specified; I13.0 Hypertensive heart and chronic kidney disease with heart failure and stage 1 through stage 4 chronic kidney disease, or unspecified chronic kidney disease; I50.23 Acute on chronic systolic (congestive) heart failure; N18.3 Chronic kidney disease, stage 3 (moderate); E11.22 Type 2 diabetes mellitus with diabetic chronic kidney disease; E11.21 Type 2 diabetes mellitus with diabetic nephropathy; E11.42 Type 2 diabetes mellitus with diabetic polyneuropathy; E11.51 Type 2 diabetes mellitus with diabetic peripheral angiopathy without gangrene; E11.649 Type 2 diabetes mellitus with hypoglycemia without coma; L89.320 Pressure ulcer of left buttock, unstageable; L89.310 Pressure ulcer of right buttock, unstageable; L89.610 Pressure ulcer of right heel, unstageable; L89.620 Pressure ulcer of left heel, unstageable; L03.116 Cellulitis of left lower limb; L03.115 Cellulitis of right lower limb; S91.105A Unspecified open wound of left lesser toe(s) without damage to nail, initial encounter; B95.62 Methicillin resistant Staphylococcus aureus infection as the cause of diseases classified elsewhere; B96.4 Proteus (mirabilis) (morganii) as the cause of diseases classified elsewhere; B95.4 Other streptococcus as the cause of diseases classified elsewhere; I25.10 Atherosclerotic heart disease of native coronary artery without angina pectoris; E78.5 Hyperlipidemia, unspecified; E03.9 Hypothyroidism, unspecified; I87.8 Other specified disorders of veins; J44.9 Chronic obstructive pulmonary disease, unspecified; Z53.20 Procedure and treatment not carried out because of patient's decision for unspecified reasons; I25.2 Old myocardial infarction; Z95.810 Presence of automatic (implantable) cardiac defibrillator; Z79.4 Long term (current) use of insulin; Z79.82 Long term (current) use of aspirin; Z86.14 Personal history of Methicillin resistant Staphylococcus aureus infection; Z87.891 Personal history of nicotine dependence
CPT/HCPCS: 71045; 73630; 74176; 80048; 80053; 80069; 80202; 81003; 82948; 83605; 84134; 84484; 85025; 85027; 87040; 87086; 93005; 93925; 94760; 94799; 97530 GP; 99202; 99281; 99285; A6214; A6260; J0696; J1644; J1815; J1940; J3370; J7040

== ENCOUNTER 2017-08-12 02:15 | Observation (INO) | payer OTHER ==
[~2017-08-12] VITALS: Ht 165.1 cm; Wt 97.6 kg
[~2017-08-12 02:15] MED LIST changes: +IMDUR60 MG PO; +LEVOTHYROXINE25 MCG PO; +LISINOPRIL20 MG PO; +NOVOLOG 10100 UNITS/ SC; +VASHE WOUND S1000 ML IR
[2017-08-12 03:07] LABS: BASOPHIL (%) 0.8 % (0-1); BASOPHIL COUNT 0.1 K/uL (0-0.1); EOSINOPHIL (%) 1.6 % (0-5); EOSINOPHIL COUNT 0.1 K/uL (0-0.3); HEMATOCRIT 25.4 % (36.0-46.0); IMMATURE GRANULOCYTE (%) 0.8 % (0.0-0.7); LYMPHOCYTE (%) 17.7 % (15-42); LYMPHOCYTE COUNT 1.1 K/uL (1.0-2.8); MCH 26.8 PG (29.0-34.0); MCHC 31.5 G/DL (30.0-36.0); MCV 84.9 FL (83-99); MONOCYTE (%) 10.4 % (3-12); MONOCYTE COUNT 0.7 K/uL (0-0.8); NEUTROPHIL (%) 68.7 % (45-76); NEUTROPHIL COUNT 4.4 K/uL (1.8-6.4); RBC DIS.WIDTH-CV 17.6 % (11.8-14.6); RED BLOOD COUNT 2.99 M/uL (3.80-5.20); WHITE BLOOD COUNT 6.4 K/uL (4.1-10.2)
[2017-08-12 03:09] LABS: CHLORIDE 108 mEq/L (99-109); POTASSIUM 3.8 mEq/L (3.7-5.4); SODIUM 140 mEq/L (136-147)
[2017-08-12 03:15] LABS: CREATININE 1.7 mg/dL (0.6-1.3); GFR ESTIMATE (CALCULATED) 32 mL/min/
[2017-08-12 03:16] LABS: GLUCOSE 31 mg/dL (70-99); UREA NITROGEN (BUN) 38 mg/dL (9-23)
[2017-08-12 06:33] LABS: PLAT.SUFFICIENCY ADEQUATE
[2017-08-12 06:46] LABS: PLATELET COUNT 178 K/uL (156-360)
[2017-08-12 08:53] LABS: APPEARANCE SL.HAZY ((CLEAR)); BILIRUBIN NEGATIVE; BLOOD SMALL; COLOR YELLOW ((YELLOW)); GLUCOSE (STRIP) NEGATIVE; KETONES NEGATIVE; LEUKOCYTES NEGATIVE; NITRITE NEGATIVE; PROTEIN (STRIP) >=500; SPECIFIC GRAVITY 1.015 (1.000-1.030); UROBILINOGEN 0.2 MG/DL (0.2-1.0)
[2017-08-12 09:01] LABS: BACTERIA RARE /HPF; CALCIUM OXALATE CRYSTALS 1+ /HPF; EPITHELIAL CELLS RARE /HPF; HYALINE CASTS 0-5 /LPF; MUCUS TRACE /LPF; UCUL ADDED? YES
[2017-08-12 10:28] LABS: TROP-I INTERPRETATION NEGATIVE; TROPONIN-I 0.01 ng/mL (0.0-0.30)
[2017-08-12 15:19] VITALS: BP 151/78
[2017-08-12 16:17] LABS: TROP-I INTERPRETATION NEGATIVE; TROPONIN-I 0.02 ng/mL (0.0-0.30)
[2017-08-12 21:26] LABS: TROP-I INTERPRETATION NEGATIVE; TROPONIN-I 0.03 ng/mL (0.0-0.30)
[2017-08-12 22:50] VITALS: BP 205/89
[2017-08-13 00:05] VITALS: BP 100/74
[2017-08-13 04:23] VITALS: BP 130/64
[2017-08-13 06:16] LABS: HEMATOCRIT 27.1 % (36.0-46.0); HEMOGLOBIN 8.1 G/DL (11.9-15.5); MCH 25.7 PG (29.0-34.0); MCHC 29.9 G/DL (30.0-36.0); PLATELET COUNT 218 K/uL (156-360); RBC DIS.WIDTH-CV 17.8 % (11.8-14.6); RBC DIS.WIDTH-SD 55.5 % (39-53); RED BLOOD COUNT 3.15 M/uL (3.80-5.20); WHITE BLOOD COUNT 8.8 K/uL (4.1-10.2)
[2017-08-13 06:40] LABS: CHLORIDE 109 MEQ/L (99-109); CREATININE 1.8 MG/DL (0.6-1.3); GFR ESTIMATE (CALCULATED) 30 mL/min/; SODIUM 140 MEQ/L (136-147); UREA NITROGEN (BUN) 33 mg/dL (9-23)
[2017-08-13 06:43] LABS: GLUCOSE 149 mg/dL (70-99); POTASSIUM 4.7 MEQ/L (3.7-5.4)
[2017-08-13 08:30] VITALS: BP 125/66
[2017-08-13 10:56] VITALS: BP 138/98
[2017-08-13 21:48] VITALS: BP 175/81
[2017-08-14] VITALS (9 sets, daily range): BP systolic 104–179; BP diastolic 55–87
[2017-08-14 05:38] LABS: BASOPHIL (%) 1.3 % (0-1); BASOPHIL COUNT 0.1 K/uL (0-0.1); EOSINOPHIL (%) 3.2 % (0-5); EOSINOPHIL COUNT 0.2 K/uL (0-0.3); HEMATOCRIT 26.1 % (36.0-46.0); IMMATURE GRANULOCYTE (%) 0.2 % (0.0-0.7); LYMPHOCYTE (%) 26.4 % (15-42); LYMPHOCYTE COUNT 1.7 K/uL (1.0-2.8); MCH 26.5 PG (29.0-34.0); MCHC 30.7 G/DL (30.0-36.0); MCV 86.4 FL (83-99); MONOCYTE (%) 10.1 % (3-12); MONOCYTE COUNT 0.6 K/uL (0-0.8); NEUTROPHIL (%) 58.8 % (45-76); NEUTROPHIL COUNT 3.7 K/uL (1.8-6.4); PLATELET COUNT 224 K/uL (156-360); RBC DIS.WIDTH-CV 17.9 % (11.8-14.6); RBC DIS.WIDTH-SD 55.6 % (39-53); RED BLOOD COUNT 3.02 M/uL (3.80-5.20); WHITE BLOOD COUNT 6.3 K/uL (4.1-10.2)
[2017-08-14 06:11] LABS: CHLORIDE 110 MEQ/L (99-109); CREATININE 2.2 MG/DL (0.6-1.3); GFR ESTIMATE (CALCULATED) 24 mL/min/; POTASSIUM 4.9 MEQ/L (3.7-5.4); SODIUM 140 MEQ/L (136-147); UREA NITROGEN (BUN) 38 mg/dL (9-23)
[2017-08-14 06:14] LABS: GLUCOSE 96 mg/dL (70-99)
[2017-08-14] MEDS ORDERED: CIPROFLOXACIN500 M1 PO (16:47)
[2017-08-14] MEDS ORDERED: AMLODIPINE BESYL5 MG PO (16:48)
[2017-08-14] MEDS ORDERED: LEVEMIR100 UNIT/2 SC (16:49)
[2017-08-14] MEDS ORDERED: SANTYL30 GM TP (16:50)
[2017-08-15 03:43] VITALS: BP 146/87
[2017-08-15 08:24] VITALS: BP 137/63
[2017-08-15 08:40] LABS: HEMATOCRIT 28.5 % (36.0-46.0); HEMOGLOBIN 8.6 G/DL (11.9-15.5); MCHC 30.2 G/DL (30.0-36.0); MCV 86.1 FL (83-99); PLATELET COUNT 247 K/uL (156-360); RBC DIS.WIDTH-SD 56.7 % (39-53); RED BLOOD COUNT 3.31 M/uL (3.80-5.20); WHITE BLOOD COUNT 6.5 K/uL (4.1-10.2)
[2017-08-15 09:12] LABS: CHLORIDE 108 MEQ/L (99-109); CREATININE 2.1 MG/DL (0.6-1.3); GFR ESTIMATE (CALCULATED) 25 mL/min/; GLUCOSE 110 mg/dL (70-99); SODIUM 139 MEQ/L (136-147); UREA NITROGEN (BUN) 42 mg/dL (9-23)
[2017-08-15 11:48] VITALS: BP 141/75
[2017-08-15] MEDS ORDERED: LEVEMIR100 UNIT/2 SC (12:30)
== END 2017-08-15 14:40 | disposition home or self-care (01) ==
LOC: EME 02:15 → EDOF 09:04 → 5WEST 09:04 → EDOF 09:04 → ENRESERV 09:14 → EDOF 09:16 → ENRESERV 12:01 → 5WEST 15:10 → ENPENDDIS 08-15 12:43 → 5WEST 08-15 14:40
PROVIDERS: Emergency Medicine; Internal Medicine
DX: E11.649 Type 2 diabetes mellitus with hypoglycemia without coma (principal); E11.51 Type 2 diabetes mellitus with diabetic peripheral angiopathy without gangrene; L02.31 Cutaneous abscess of buttock; S91.105A Unspecified open wound of left lesser toe(s) without damage to nail, initial encounter; E11.622 Type 2 diabetes mellitus with other skin ulcer; L89.620 Pressure ulcer of left heel, unstageable; L89.610 Pressure ulcer of right heel, unstageable; Z91.19 Patient's noncompliance with other medical treatment and regimen; I13.0 Hypertensive heart and chronic kidney disease with heart failure and stage 1 through stage 4 chronic kidney disease, or unspecified chronic kidney disease; E11.22 Type 2 diabetes mellitus with diabetic chronic kidney disease; I50.9 Heart failure, unspecified; N18.4 Chronic kidney disease, stage 4 (severe); R09.02 Hypoxemia; I25.10 Atherosclerotic heart disease of native coronary artery without angina pectoris; E78.5 Hyperlipidemia, unspecified; E03.9 Hypothyroidism, unspecified; F41.9 Anxiety disorder, unspecified; J44.9 Chronic obstructive pulmonary disease, unspecified; I70.248 Atherosclerosis of native arteries of left leg with ulceration of other part of lower leg; I70.238 Atherosclerosis of native arteries of right leg with ulceration of other part of lower leg; Z95.820 Peripheral vascular angioplasty status with implants and grafts; Z99.81 Dependence on supplemental oxygen; Z95.810 Presence of automatic (implantable) cardiac defibrillator; Z98.890 Other specified postprocedural states; Z79.4 Long term (current) use of insulin; Z87.891 Personal history of nicotine dependence; Z88.2 Allergy status to sulfonamides; Z88.6 Allergy status to analgesic agent; Z88.8 Allergy status to other drugs, medicaments and biological substances
CPT/HCPCS: 71045; 80048; 81003; 82948; 84484; 85025; 85027; 87040; 87070; 87075; 87076; 87077; 87086; 87106; 87147; 87185; 87186; 87205; 94640; 94760; 94799; 97530 GO; 99202; 99281; 99285; A6260; G0378; G8978 GP CJ; G8979 GP CI; G8980 CJ; G8987 GO CI; G8987 GO CJ; G8988 CI; G8988 GO CH; G8989 GO CI; J1650; J1815; J3370; J7030; J7070

== ENCOUNTER 2017-08-28 17:13 | Inpatient (IN) | payer OTHER ==
[~2017-08-28] VITALS: Ht 152.4 cm; Wt 105.0 kg
[~2017-08-28 17:13] MED LIST changes: +CIPROFLOXACIN500 M1 PO; +LEVEMIR100 UNIT/2 SC; +SANTYL30 GM TP
[2017-08-28 17:22] LABS: BASE EXCESS -5.9 mEq/L (-3 to +3); BICARBONATE 21.7 mEq/L (22-26); CARBOXY HGB 1.7 % (0-5); COMMENTS - BLOOD GASES A+C+; DEVICE NRB; FI02 100 %; METHEMOGLOBIN 1.2 % (0-1.5); O2 FLOW 15 L/MIN; PCO2 53 mm Hg (35-45); PO2 206 mm Hg (80-100); SITE RR; pH 7.22 (7.35-7.45)
[2017-08-28 17:49] LABS: BASOPHIL (%) 0.1 % (0-1); EOSINOPHIL (%) 0.7 % (0-5); EOSINOPHIL COUNT 0.1 K/uL (0-0.3); HEMATOCRIT 27.3 % (36.0-46.0); HEMOGLOBIN 8.2 G/DL (11.9-15.5); IMMATURE GRANULOCYTE (%) 1.7 % (0.0-0.7); LYMPHOCYTE (%) 6.2 % (15-42); LYMPHOCYTE COUNT 0.6 K/uL (1.0-2.8); MCH 26.3 PG (29.0-34.0); MCV 87.5 FL (83-99); MONOCYTE (%) 4.7 % (3-12); MONOCYTE COUNT 0.4 K/uL (0-0.8); NEUTROPHIL (%) 86.6 % (45-76); NEUTROPHIL COUNT 8.1 K/uL (1.8-6.4); NRBC (%) 0.3 /100 WBC (0-0); RBC DIS.WIDTH-CV 19.6 % (11.8-14.6); RBC DIS.WIDTH-SD 62.4 % (39-53); RED BLOOD COUNT 3.12 M/uL (3.80-5.20); WHITE BLOOD COUNT 9.3 K/uL (4.1-10.2)
[2017-08-28 17:53] LABS: ALBUMIN 2.1 g/dL (3.2-4.8); CHLORIDE 117 mEq/L (99-109); POTASSIUM 4.5 mEq/L (3.7-5.4); SODIUM 146 mEq/L (136-147)
[2017-08-28 17:54] LABS: MAGNESIUM 1.8 mg/dL (1.3-2.7)
[2017-08-28 17:56] LABS: GLUCOSE 252 mg/dL (70-99); TOTAL PROTEIN 4.9 g/dL (6.4-8.3)
[2017-08-28 17:58] LABS: TOTAL BILIRUBIN 0.4 mg/dL (0.0-1.0)
[2017-08-28 17:59] LABS: ALKALINE PHOSPHATASE 161 IU/L (3-129); CREATININE 2.2 mg/dL (0.6-1.3); GFR ESTIMATE (CALCULATED) 24 mL/min/
[2017-08-28 18:00] LABS: UREA NITROGEN (BUN) 47 mg/dL (9-23)
[2017-08-28 18:01] LABS: AST (GOT) 15 IU/L (2-34)
[2017-08-28 18:02] LABS: ALT (GPT) 22 IU/L (3-49)
[2017-08-28 18:04] LABS: TROP-I INTERPRETATION NEGATIVE; TROPONIN-I < 0.01 ng/mL (0.0-0.30)
[2017-08-28 18:21] LABS: APPEARANCE CLOUDY ((CLEAR)); BILIRUBIN NEGATIVE; BLOOD LARGE; COLOR YELLOW ((YELLOW)); GLUCOSE (STRIP) 50; KETONES NEGATIVE; LEUKOCYTES LARGE; NITRITE NEGATIVE; PROTEIN (STRIP) 100; SPECIFIC GRAVITY 1.009 (1.000-1.030); UROBILINOGEN 0.2 MG/DL (0.2-1.0)
[2017-08-28 18:34] LABS: RED BLOOD CELLS 30-40 /HPF (0-5); WHITE BLOOD CELLS TNTC /HPF (0-5)
[2017-08-28 18:35] LABS: BACTERIA 1+ /HPF; EPITHELIAL CELLS RARE /HPF; MUCUS NONE SEEN /LPF; UCUL ADDED? YES
[2017-08-28 18:36] LABS: AMORPHOUS URATES CRYSTALS 1+
[2017-08-28 18:50] LABS: INTER. NORMALIZED RATIO 1.5
[2017-08-28 18:51] LABS: PLATELET COUNT 56 K/uL (156-360)
[2017-08-28 18:53] LABS: PTT 38.9 SEC (25-37)
[2017-08-28 19:40] LABS: BASE EXCESS -2.8 mEq/L (-3 to +3); BICARBONATE 21.7 mEq/L (22-26); CARBOXY HGB 1.2 % (0-5); METHEMOGLOBIN 1.2 % (0-1.5)
[2017-08-28 19:41] LABS: COMMENTS - BLOOD GASES A+C+; DEVICE VENT; FI02 10 %; MECHANICAL RATE 16 resp/min; MODE AC; PCO2 35 mm Hg (35-45); PEEP 6 CM/H20; PO2 269 mm Hg (80-100); SITE RR; TIDAL VOLUME 500 ML; TOTAL RESP RATE 16 resp/min
[2017-08-28] MEDS ORDERED: NORVASC5 MG PO (20:16)
[2017-08-28] MEDS ORDERED: IMDUR60 MG PO (20:17)
[2017-08-28] MEDS ORDERED: LANTUS 10100 UNITS/ SC (20:18)
[2017-08-28] MEDS ORDERED: BACTRIM,SEPT1 TABLET PO (20:19)
[2017-08-28 20:45] VITALS: BP 121/87
[2017-08-28 21:00] VITALS: BP 169/75
[2017-08-28 21:26] VITALS: BP 121/87
[2017-08-28 22:00] VITALS: BP 111/56
[2017-08-28 23:00] VITALS: BP 139/65
[2017-08-29] VITALS (30 sets, daily range): BP systolic 79–141; BP diastolic 44–69
[2017-08-29 05:23] LABS: BASE EXCESS -2.7 mEq/L (-3 to +3); BICARBONATE 20.9 mEq/L (22-26); CARBOXY HGB 1.7 % (0-5); COMMENTS - BLOOD GASES NA.C+; DEVICE 840; FI02 30 %; MECHANICAL RATE 16 resp/min; METHEMOGLOBIN 0.9 % (0-1.5); MODE AC; PCO2 30 mm Hg (35-45); PEEP 6 CM/H20; PO2 74 mm Hg (80-100); SITE LR; TIDAL VOLUME 500 ML; TOTAL RESP RATE 16 resp/min; pH 7.45 (7.35-7.45)
[2017-08-29 05:29] LABS: MCH 26.5 PG (29.0-34.0); MCHC 31.4 G/DL (30.0-36.0); MCV 84.6 FL (83-99); NRBC (%) 0.2 /100 WBC (0-0); PLATELET COUNT 57 K/uL (156-360); RBC DIS.WIDTH-CV 19.3 % (11.8-14.6); WHITE BLOOD COUNT 8.7 K/uL (4.1-10.2)
[2017-08-29 05:30] LABS: CHLORIDE 119 mEq/L (99-109); HEMOGLOBIN 6.9 G/DL (11.9-15.5); MAGNESIUM 1.6 mg/dL (1.3-2.7); SODIUM 147 mEq/L (136-147)
[2017-08-29 05:32] LABS: GLUCOSE 175 mg/dL (70-99)
[2017-08-29 05:35] LABS: PHOSPHORUS 3.5 mg/dL (2.5-4.9)
[2017-08-29 05:36] LABS: GFR ESTIMATE (CALCULATED) 27 mL/min/; UREA NITROGEN (BUN) 45 mg/dL (9-23)
[2017-08-29 09:29] LABS: HEMOGLOBIN A1c (GLYCOHEMOGLOB) 8.4 % (Below 5.7)
[2017-08-29 15:59] LABS: MCV 83.9 FL (83-99)
[2017-08-30] VITALS (23 sets, daily range): BP systolic 103–151; BP diastolic 51–92
[2017-08-30 09:55] LABS: BASOPHIL (%) 0.3 % (0-1); EOSINOPHIL (%) 0.8 % (0-5); EOSINOPHIL COUNT 0.1 K/uL (0-0.3); HEMOGLOBIN 7.7 G/DL (11.9-15.5); IMMATURE GRANULOCYTE (%) 0.8 % (0.0-0.7); LYMPHOCYTE (%) 17.3 % (15-42); LYMPHOCYTE COUNT 1.6 K/uL (1.0-2.8); MCH 26.2 PG (29.0-34.0); MCHC 30.8 G/DL (30.0-36.0); MONOCYTE (%) 6.8 % (3-12); MONOCYTE COUNT 0.6 K/uL (0-0.8); NEUTROPHIL COUNT 6.7 K/uL (1.8-6.4); RBC DIS.WIDTH-CV 19.2 % (11.8-14.6); RBC DIS.WIDTH-SD 58.1 % (39-53); RED BLOOD COUNT 2.94 M/uL (3.80-5.20); WHITE BLOOD COUNT 9.1 K/uL (4.1-10.2)
[2017-08-30 09:57] LABS: PLATELET COUNT 78 K/uL (156-360)
[2017-08-30 10:39] LABS: ALBUMIN 1.6 G/DL (3.2-4.8); ALKALINE PHOSPHATASE 112 IU/L (3-129); ALT (GPT) 13 IU/L (3-49); AST (GOT) 9 IU/L (2-34); CHLORIDE 118 MEQ/L (99-109); CREATININE 2.3 MG/DL (0.6-1.3); GFR ESTIMATE (CALCULATED) 23 mL/min/; GLUCOSE 161 mg/dL (70-99); MAGNESIUM 1.7 mg/dl (1.3-2.7); PHOSPHORUS 4.1 mg/dL (2.5-4.9); POTASSIUM 4.4 MEQ/L (3.7-5.4); SODIUM 147 MEQ/L (136-147); TOTAL BILIRUBIN 0.5 MG/DL (0.0-1.0); TOTAL PROTEIN 4.3 G/DL (6.4-8.3); UREA NITROGEN (BUN) 41 mg/dL (9-23)
[2017-08-30 15:38] LABS: BASE EXCESS -2.8 mEq/L (-3 to +3); BICARBONATE 21.8 mEq/L (22-26); CARBOXY HGB 1.7 % (0-5); METHEMOGLOBIN 1.3 % (0-1.5); PO2 86 mm Hg (80-100); pH 7.39 (7.35-7.45)
[2017-08-30 15:39] LABS: COMMENTS - BLOOD GASES A+C+; DEVICE VENT; FI02 30 %; MODE SPONT PS; PCO2 36 mm Hg (35-45); PRES. SUPPORT 8 CM/H2O; SITE RR; TOTAL RESP RATE 15 resp/min
[2017-08-31] VITALS (24 sets, daily range): BP systolic 106–165; BP diastolic 58–99
[2017-08-31 10:56] LABS: BASOPHIL (%) 0.4 % (0-1); EOSINOPHIL (%) 1.6 % (0-5); EOSINOPHIL COUNT 0.2 K/uL (0-0.3); HEMATOCRIT 28.7 % (36.0-46.0); HEMOGLOBIN 8.6 G/DL (11.9-15.5); IMMATURE GRANULOCYTE (%) 0.9 % (0.0-0.7); LYMPHOCYTE (%) 14.1 % (15-42); LYMPHOCYTE COUNT 1.5 K/uL (1.0-2.8); MCH 25.7 PG (29.0-34.0); MCV 85.7 FL (83-99); MONOCYTE COUNT 0.8 K/uL (0-0.8); NEUTROPHIL COUNT 8.1 K/uL (1.8-6.4); NRBC (%) 0.5 /100 WBC (0-0); PLATELET COUNT 97 K/uL (156-360); RBC DIS.WIDTH-CV 19.4 % (11.8-14.6); RED BLOOD COUNT 3.35 M/uL (3.80-5.20); WHITE BLOOD COUNT 10.7 K/uL (4.1-10.2)
[2017-08-31 11:14] LABS: CHLORIDE 115 MEQ/L (99-109); CREATININE 2.4 MG/DL (0.6-1.3); GFR ESTIMATE (CALCULATED) 22 mL/min/; GLUCOSE 164 mg/dL (70-99); MAGNESIUM 1.8 mg/dl (1.3-2.7); PHOSPHORUS 4.1 mg/dL (2.5-4.9); POTASSIUM 4.2 MEQ/L (3.7-5.4); SODIUM 145 MEQ/L (136-147); UREA NITROGEN (BUN) 40 mg/dL (9-23)
[2017-09-01] VITALS (23 sets, daily range): BP systolic 138–187; BP diastolic 57–124
[2017-09-01 10:27] LABS: BASE EXCESS -2.8 mEq/L (-3 to +3); BICARBONATE 21.8 mEq/L (22-26); CARBOXY HGB 1.9 % (0-5); METHEMOGLOBIN 1.4 % (0-1.5); PCO2 36 mm Hg (35-45); PO2 83 mm Hg (80-100); SITE RR; pH 7.39 (7.35-7.45)
[2017-09-01 10:28] LABS: COMMENTS - BLOOD GASES A+C+; DEVICE VENT; FI02 30 %; MODE SPONT; O2 FLOW 50 L/MIN; PEEP 5 CM/H20; PRES. SUPPORT 10 CM/H2O; TOTAL RESP RATE 13 resp/min
[2017-09-01 14:19] LABS: BASE EXCESS -3.3 mEq/L (-3 to +3); BICARBONATE 22.1 mEq/L (22-26); CARBOXY HGB 1.9 % (0-5); COMMENTS - BLOOD GASES A+C+; DEVICE NC; O2 FLOW 4 L/MIN; PCO2 40 mm Hg (35-45); PO2 79 mm Hg (80-100); SITE RR; TOTAL RESP RATE 13 resp/min; pH 7.35 (7.35-7.45)
[2017-09-02] VITALS (24 sets, daily range): BP systolic 134–184; BP diastolic 73–119
[2017-09-02 06:10] LABS: BASOPHIL (%) 0.5 % (0-1); EOSINOPHIL (%) 2.9 % (0-5); EOSINOPHIL COUNT 0.3 K/uL (0-0.3); HEMATOCRIT 28.6 % (36.0-46.0); HEMOGLOBIN 8.4 G/DL (11.9-15.5); IMMATURE GRANULOCYTE (%) 2.1 % (0.0-0.7); LYMPHOCYTE (%) 14.8 % (15-42); LYMPHOCYTE COUNT 1.3 K/uL (1.0-2.8); MCHC 29.4 G/DL (30.0-36.0); MCV 88.5 FL (83-99); MONOCYTE (%) 6.3 % (3-12); MONOCYTE COUNT 0.6 K/uL (0-0.8); NEUTROPHIL (%) 73.4 % (45-76); NEUTROPHIL COUNT 6.4 K/uL (1.8-6.4); NRBC (%) 0.2 /100 WBC (0-0); PLATELET COUNT 90 K/uL (156-360); RBC DIS.WIDTH-CV 19.8 % (11.8-14.6); RBC DIS.WIDTH-SD 63.6 % (39-53); RED BLOOD COUNT 3.23 M/uL (3.80-5.20); WHITE BLOOD COUNT 8.7 K/uL (4.1-10.2)
[2017-09-02 08:51] LABS: CHLORIDE 118 MEQ/L (99-109); CREATININE 2.3 MG/DL (0.6-1.3); GFR ESTIMATE (CALCULATED) 23 mL/min/; GLUCOSE 99 mg/dL (70-99); POTASSIUM 4.3 MEQ/L (3.7-5.4); SODIUM 150 MEQ/L (136-147); THYROTROPIN (TSH) 2.1 MIU/L (0.4-5.5); UREA NITROGEN (BUN) 39 mg/dL (9-23)
[2017-09-03] VITALS (15 sets, daily range): BP systolic 126–173; BP diastolic 59–97
[2017-09-03 05:05] LABS: HEMATOCRIT 28.2 % (36.0-46.0); HEMOGLOBIN 8.6 G/DL (11.9-15.5); MCH 26.9 PG (29.0-34.0); MCHC 30.5 G/DL (30.0-36.0); MCV 88.1 FL (83-99); NRBC (%) 0.3 /100 WBC (0-0); PLATELET COUNT 91 K/uL (156-360); RBC DIS.WIDTH-CV 19.6 % (11.8-14.6); WHITE BLOOD COUNT 7.7 K/uL (4.1-10.2)
[2017-09-03 05:28] LABS: ALBUMIN 2.1 g/dL (3.2-4.8); CHLORIDE 120 mEq/L (99-109); POTASSIUM 4.9 mEq/L (3.7-5.4); SODIUM 148 mEq/L (136-147)
[2017-09-03 05:31] LABS: GLUCOSE 174 mg/dL (70-99); MAGNESIUM 2.6 mg/dL (1.3-2.7)
[2017-09-03 05:34] LABS: ALKALINE PHOSPHATASE 160 IU/L (3-129); PHOSPHORUS 4.5 mg/dL (2.5-4.9)
[2017-09-03 05:35] LABS: CREATININE 2.4 mg/dL (0.6-1.3); GFR ESTIMATE (CALCULATED) 22 mL/min/
[2017-09-03 05:36] LABS: AST (GOT) 21 IU/L (2-34); UREA NITROGEN (BUN) 41 mg/dL (9-23)
[2017-09-03 05:37] LABS: ALT (GPT) 17 IU/L (3-49)
[2017-09-03 05:42] LABS: TOTAL BILIRUBIN 0.7 mg/dL (0.0-1.0)
[2017-09-04] VITALS (7 sets, daily range): BP systolic 115–147; BP diastolic 60–93
[2017-09-04 05:31] LABS: HEMOGLOBIN 8.4 G/DL (11.9-15.5); MCH 26.7 PG (29.0-34.0); MCV 88.9 FL (83-99); NRBC (%) 0.2 /100 WBC (0-0); PLATELET COUNT 98 K/uL (156-360); RBC DIS.WIDTH-CV 19.8 % (11.8-14.6); RBC DIS.WIDTH-SD 63.7 % (39-53); RED BLOOD COUNT 3.15 M/uL (3.80-5.20); WHITE BLOOD COUNT 8.2 K/uL (4.1-10.2)
[2017-09-04 05:52] LABS: ALKALINE PHOSPHATASE 133 IU/L (3-129); ALT (GPT) 10 IU/L (3-49); AST (GOT) 7 IU/L (2-34); CHLORIDE 116 MEQ/L (99-109); CREATININE 2.2 MG/DL (0.6-1.3); GFR ESTIMATE (CALCULATED) 24 mL/min/; GLUCOSE 190 mg/dL (70-99); PHOSPHORUS 3.8 mg/dL (2.5-4.9); SODIUM 145 MEQ/L (136-147); TOTAL BILIRUBIN 0.5 MG/DL (0.0-1.0); UREA NITROGEN (BUN) 42 mg/dL (9-23)
[2017-09-04 05:55] LABS: MAGNESIUM 2.1 mg/dl (1.3-2.7); POTASSIUM 3.8 MEQ/L (3.7-5.4); TOTAL PROTEIN 5.1 G/DL (6.4-8.3)
[2017-09-04 08:24] LABS: Heparin Induced Plt Ab Negative (Negative)
[2017-09-04 17:53] LABS: UFH SRA Result Negative (Negative)
[2017-09-05 04:00] VITALS: BP 129/81
[2017-09-05 05:46] LABS: HEMATOCRIT 27.4 % (36.0-46.0); MCH 26.1 PG (29.0-34.0); MCHC 29.2 G/DL (30.0-36.0); MCV 89.5 FL (83-99); PLATELET COUNT 99 K/uL (156-360); RBC DIS.WIDTH-CV 19.7 % (11.8-14.6); RBC DIS.WIDTH-SD 64.2 % (39-53); RED BLOOD COUNT 3.06 M/uL (3.80-5.20); WHITE BLOOD COUNT 7.6 K/uL (4.1-10.2)
[2017-09-05 06:07] LABS: ALBUMIN 1.9 G/DL (3.2-4.8); ALKALINE PHOSPHATASE 116 IU/L (3-129); ALT (GPT) 12 IU/L (3-49); AST (GOT) 7 IU/L (2-34); CHLORIDE 116 MEQ/L (99-109); CREATININE 2.5 MG/DL (0.6-1.3); GFR ESTIMATE (CALCULATED) 21 mL/min/; PHOSPHORUS 3.7 mg/dL (2.5-4.9); POTASSIUM 3.6 MEQ/L (3.7-5.4); SODIUM 145 MEQ/L (136-147); TOTAL BILIRUBIN 0.5 MG/DL (0.0-1.0); TOTAL PROTEIN 5.3 G/DL (6.4-8.3); UREA NITROGEN (BUN) 39 mg/dL (9-23)
[2017-09-05 06:15] LABS: GLUCOSE 91 mg/dL (70-99)
[2017-09-05 07:50] VITALS: BP 128/56
[2017-09-05 11:39] VITALS: BP 132/71
[2017-09-05 16:30] VITALS: BP 144/78
[2017-09-05 22:38] VITALS: BP 126/69
[2017-09-06 00:15] VITALS: BP 128/63
[2017-09-06 03:54] VITALS: BP 121/64
[2017-09-06 06:17] LABS: HEMATOCRIT 28.3 % (36.0-46.0); HEMOGLOBIN 8.2 G/DL (11.9-15.5); MCH 26.7 PG (29.0-34.0); MCV 92.2 FL (83-99); PLATELET COUNT 104 K/uL (156-360); RBC DIS.WIDTH-CV 19.9 % (11.8-14.6); RBC DIS.WIDTH-SD 65.6 % (39-53); RED BLOOD COUNT 3.07 M/uL (3.80-5.20); WHITE BLOOD COUNT 9.1 K/uL (4.1-10.2)
[2017-09-06 06:29] LABS: CHLORIDE 116 MEQ/L (99-109); CREATININE 2.3 MG/DL (0.6-1.3); GFR ESTIMATE (CALCULATED) 23 mL/min/; GLUCOSE 122 mg/dL (70-99); IRON 46 MCG/DL (35-150); PHOSPHORUS 4.2 mg/dL (2.5-4.9); POTASSIUM 3.8 MEQ/L (3.7-5.4); SODIUM 148 MEQ/L (136-147); TRANSFERRIN (TIBC) 156.7 mg/dL (215-380); TRANSFERRIN SATUR. 29 % (20-55); UREA NITROGEN (BUN) 38 mg/dL (9-23)
[2017-09-06 07:15] VITALS: BP 164/80
[2017-09-06 07:30] LABS: INTACT PARATHYROID HORMONE 251 pg/mL (10-69)
[2017-09-06 11:28] VITALS: BP 190/75
[2017-09-06 15:40] VITALS: BP 159/80
[2017-09-06 20:15] VITALS: BP 177/83
[2017-09-07] VITALS (7 sets, daily range): BP systolic 106–186; BP diastolic 62–91
[2017-09-07 05:56] LABS: HEMATOCRIT 27.5 % (36.0-46.0); HEMOGLOBIN 8.1 G/DL (11.9-15.5); MCH 26.4 PG (29.0-34.0); MCHC 29.5 G/DL (30.0-36.0); MCV 89.6 FL (83-99); RBC DIS.WIDTH-CV 19.9 % (11.8-14.6); RBC DIS.WIDTH-SD 63.4 % (39-53); RED BLOOD COUNT 3.07 M/uL (3.80-5.20); WHITE BLOOD COUNT 10.2 K/uL (4.1-10.2)
[2017-09-07 06:16] LABS: PLATELET COUNT 143 K/uL (156-360)
[2017-09-07 06:24] LABS: ALBUMIN 2.8 G/DL (3.2-4.8); CHLORIDE 114 MEQ/L (99-109); CREATININE 2.5 MG/DL (0.6-1.3); GFR ESTIMATE (CALCULATED) 21 mL/min/; PHOSPHORUS 4.5 mg/dL (2.5-4.9); POTASSIUM 3.8 MEQ/L (3.7-5.4); SODIUM 145 MEQ/L (136-147); UREA NITROGEN (BUN) 42 mg/dL (9-23)
[2017-09-07 06:32] LABS: GLUCOSE 204 mg/dL (70-99)
[2017-09-08 06:55] LABS: CHLORIDE 113 MEQ/L (99-109); CREATININE 2.4 MG/DL (0.6-1.3); GFR ESTIMATE (CALCULATED) 22 mL/min/; GLUCOSE 200 mg/dL (70-99); POTASSIUM 3.4 MEQ/L (3.7-5.4); SODIUM 146 MEQ/L (136-147); UREA NITROGEN (BUN) 43 mg/dL (9-23)
[2017-09-08 06:56] LABS: ALBUMIN 2.9 G/DL (3.2-4.8); CHLORIDE 113 MEQ/L (99-109); CREATININE 2.5 MG/DL (0.6-1.3); GFR ESTIMATE (CALCULATED) 21 mL/min/; GLUCOSE 198 mg/dL (70-99); PHOSPHORUS 4.4 mg/dL (2.5-4.9); POTASSIUM 3.4 MEQ/L (3.7-5.4); SODIUM 146 MEQ/L (136-147); UREA NITROGEN (BUN) 42 mg/dL (9-23)
[2017-09-08 07:15] VITALS: BP 110/71
[2017-09-08 07:20] VITALS: BP 110/71
[2017-09-08 11:15] VITALS: BP 176/92
[2017-09-08 16:10] VITALS: BP 124/67
[2017-09-08 20:04] VITALS: BP 156/92
[2017-09-09] VITALS (7 sets, daily range): BP systolic 119–165; BP diastolic 76–88
[2017-09-09 06:05] LABS: ALBUMIN 2.6 G/DL (3.2-4.8); CHLORIDE 112 MEQ/L (99-109); CREATININE 2.5 MG/DL (0.6-1.3); GFR ESTIMATE (CALCULATED) 21 mL/min/; GLUCOSE 159 mg/dL (70-99); PHOSPHORUS 4.5 mg/dL (2.5-4.9); POTASSIUM 3.5 MEQ/L (3.7-5.4); SODIUM 146 MEQ/L (136-147); UREA NITROGEN (BUN) 43 mg/dL (9-23)
[2017-09-10 03:22] VITALS: BP 115/79
[2017-09-10 05:41] LABS: HEMOGLOBIN 7.9 G/DL (11.9-15.5); MCH 26.7 PG (29.0-34.0); MCHC 30.4 G/DL (30.0-36.0); MCV 87.8 FL (83-99); RBC DIS.WIDTH-CV 20.2 % (11.8-14.6); RBC DIS.WIDTH-SD 62.9 % (39-53); RED BLOOD COUNT 2.96 M/uL (3.80-5.20); WHITE BLOOD COUNT 7.6 K/uL (4.1-10.2)
[2017-09-10 05:44] LABS: PLATELET COUNT 293 K/uL (156-360)
[2017-09-10 06:24] LABS: ALBUMIN 2.7 G/DL (3.2-4.8); CHLORIDE 111 MEQ/L (99-109); CREATININE 2.6 MG/DL (0.6-1.3); GFR ESTIMATE (CALCULATED) 20 mL/min/; GLUCOSE 149 mg/dL (70-99); PHOSPHORUS 3.9 mg/dL (2.5-4.9); POTASSIUM 3.8 MEQ/L (3.7-5.4); SODIUM 144 MEQ/L (136-147); UREA NITROGEN (BUN) 45 mg/dL (9-23)
[2017-09-10 07:20] VITALS: BP 139/69
[2017-09-10 11:00] VITALS: BP 141/66
[2017-09-10 15:25] VITALS: BP 149/86
[2017-09-10 20:00] VITALS: BP 163/79
[2017-09-10 21:45] VITALS: BP 175/74
[2017-09-11 04:12] VITALS: BP 158/72
[2017-09-11 06:16] LABS: HEMATOCRIT 25.3 % (36.0-46.0); HEMOGLOBIN 7.6 G/DL (11.9-15.5); MCH 26.5 PG (29.0-34.0); MCV 88.2 FL (83-99); RBC DIS.WIDTH-CV 20.2 % (11.8-14.6); RED BLOOD COUNT 2.87 M/uL (3.80-5.20)
[2017-09-11 06:38] LABS: ALBUMIN 2.3 G/DL (3.2-4.8); CHLORIDE 109 MEQ/L (99-109); CREATININE 2.6 MG/DL (0.6-1.3); GFR ESTIMATE (CALCULATED) 20 mL/min/; GLUCOSE 169 mg/dL (70-99); POTASSIUM 4.1 MEQ/L (3.7-5.4); SODIUM 144 MEQ/L (136-147); UREA NITROGEN (BUN) 44 mg/dL (9-23)
[2017-09-11 06:43] LABS: PLATELET COUNT 387 K/uL (156-360)
[2017-09-11 07:41] VITALS: BP 176/85
[2017-09-11 11:27] VITALS: BP 126/66
[2017-09-11 15:50] LABS: TYPE OF FLUID THORACENTESIS
[2017-09-11 16:12] LABS: APPEARANCE CLEAR-STRAW; BODY FLUID RBC'S < 1000 /MM^3 (0-100); BODY FLUID WBC'S 152 /MM^3 (0-500)
[2017-09-11 16:14] VITALS: BP 132/62
[2017-09-11 17:26] LABS: BODY FLUID EOSINOPHILS 0 % (0-25); MONONUCLEAR WBC'S 31 %; POLYNUCLEAR WBC'S 69 % (0-25)
[2017-09-11 19:43] VITALS: BP 171/78
[2017-09-11 23:39] VITALS: BP 127/60
[2017-09-12] VITALS (7 sets, daily range): BP systolic 127–186; BP diastolic 65–79
[2017-09-12 05:59] LABS: HEMATOCRIT 24.2 % (36.0-46.0); HEMOGLOBIN 7.4 G/DL (11.9-15.5); MCH 27.1 PG (29.0-34.0); MCHC 30.6 G/DL (30.0-36.0); MCV 88.6 FL (83-99); PLATELET COUNT 392 K/uL (156-360); RBC DIS.WIDTH-SD 62.1 % (39-53); RED BLOOD COUNT 2.73 M/uL (3.80-5.20); WHITE BLOOD COUNT 5.3 K/uL (4.1-10.2)
[2017-09-12 06:36] LABS: ALBUMIN 2.3 G/DL (3.2-4.8); CHLORIDE 107 MEQ/L (99-109); CREATININE 2.5 MG/DL (0.6-1.3); GFR ESTIMATE (CALCULATED) 21 mL/min/; POTASSIUM 3.8 MEQ/L (3.7-5.4); SODIUM 141 MEQ/L (136-147); UREA NITROGEN (BUN) 49 mg/dL (9-23)
[2017-09-12 06:38] LABS: GLUCOSE 85 mg/dL (70-99)
[2017-09-13 06:24] LABS: HEMATOCRIT 28.9 % (36.0-46.0); HEMOGLOBIN 8.9 G/DL (11.9-15.5); MCH 26.8 PG (29.0-34.0); MCHC 30.8 G/DL (30.0-36.0); PLATELET COUNT 459 K/uL (156-360); RBC DIS.WIDTH-SD 56.8 % (39-53); WHITE BLOOD COUNT 5.8 K/uL (4.1-10.2)
[2017-09-13 06:32] LABS: RED BLOOD COUNT 3.32 M/uL (3.80-5.20)
[2017-09-13 06:45] LABS: ALBUMIN 2.3 G/DL (3.2-4.8); CHLORIDE 104 MEQ/L (99-109); CREATININE 2.4 MG/DL (0.6-1.3); GFR ESTIMATE (CALCULATED) 22 mL/min/; GLUCOSE 64 mg/dL (70-99); PHOSPHORUS 4.1 mg/dL (2.5-4.9); POTASSIUM 4.1 MEQ/L (3.7-5.4); SODIUM 142 MEQ/L (136-147); UREA NITROGEN (BUN) 46 mg/dL (9-23)
[2017-09-13 07:25] VITALS: BP 180/90
[2017-09-13 15:10] VITALS: BP 173/79
[2017-09-13 21:30] VITALS: BP 164/74
[2017-09-13 23:13] VITALS: BP 134/69
[2017-09-14 06:08] LABS: HEMATOCRIT 28.6 % (36.0-46.0); HEMOGLOBIN 8.9 G/DL (11.9-15.5); MCH 27.2 PG (29.0-34.0); MCHC 31.1 G/DL (30.0-36.0); MCV 87.5 FL (83-99); PLATELET COUNT 450 K/uL (156-360); RBC DIS.WIDTH-CV 18.8 % (11.8-14.6); RBC DIS.WIDTH-SD 57.1 % (39-53); RED BLOOD COUNT 3.27 M/uL (3.80-5.20); WHITE BLOOD COUNT 4.2 K/uL (4.1-10.2)
[2017-09-14 06:28] LABS: ALBUMIN 2.3 G/DL (3.2-4.8); CHLORIDE 103 MEQ/L (99-109); CREATININE 2.4 MG/DL (0.6-1.3); GFR ESTIMATE (CALCULATED) 22 mL/min/; PHOSPHORUS 4.9 mg/dL (2.5-4.9); SODIUM 141 MEQ/L (136-147); UREA NITROGEN (BUN) 42 mg/dL (9-23)
[2017-09-14 06:35] LABS: GLUCOSE 40 mg/dL (70-99)
[2017-09-14 07:00] VITALS: BP 189/79
[2017-09-14] MEDS ORDERED: SPIRONOLACTONE25 MG PO (14:15)
[2017-09-14] MEDS ORDERED: LISINOPRIL20 MG PO (15:07)
[2017-09-14] MEDS ORDERED: K-DUR20 MEQ PO (15:07)
[2017-09-14 16:01] VITALS: BP 135/63
== END 2017-09-14 18:55 | DRG 871 ==
LOC: EME 17:13 → EDOF 20:04 → 4EAST 20:04 → 4WEST 20:04 → ENRESERV 20:05 → 4WEST 20:38 → ENRESERV 09-03 14:16 → 4EAST 09-03 17:49 → ENRESERV 09-05 13:33 → 5EAST 09-05 16:30
PROVIDERS: Emergency Medicine; Family Medicine; Hospitalist; Internal Medicine; Internal Medicine Nephrology; Obstetrics & Gynecology; Surgery
DX: A41.9 Sepsis, unspecified organism (principal); J18.9 Pneumonia, unspecified organism; R65.21 Severe sepsis with septic shock; J96.21 Acute and chronic respiratory failure with hypoxia; I13.0 Hypertensive heart and chronic kidney disease with heart failure and stage 1 through stage 4 chronic kidney disease, or unspecified chronic kidney disease; I50.23 Acute on chronic systolic (congestive) heart failure; J44.0 Chronic obstructive pulmonary disease with (acute) lower respiratory infection; G93.1 Anoxic brain damage, not elsewhere classified; J44.1 Chronic obstructive pulmonary disease with (acute) exacerbation; L89.329 Pressure ulcer of left buttock, unspecified stage; L89.319 Pressure ulcer of right buttock, unspecified stage; E11.22 Type 2 diabetes mellitus with diabetic chronic kidney disease; N18.4 Chronic kidney disease, stage 4 (severe); I27.20 Pulmonary hypertension, unspecified; I46.2 Cardiac arrest due to underlying cardiac condition; I49.01 Ventricular fibrillation; I95.9 Hypotension, unspecified; J91.8 Pleural effusion in other conditions classified elsewhere; D63.1 Anemia in chronic kidney disease; E11.40 Type 2 diabetes mellitus with diabetic neuropathy, unspecified; E11.51 Type 2 diabetes mellitus with diabetic peripheral angiopathy without gangrene; L89.610 Pressure ulcer of right heel, unstageable; L89.620 Pressure ulcer of left heel, unstageable; L02.31 Cutaneous abscess of buttock; E11.622 Type 2 diabetes mellitus with other skin ulcer; L97.929 Non-pressure chronic ulcer of unspecified part of left lower leg with unspecified severity; L97.919 Non-pressure chronic ulcer of unspecified part of right lower leg with unspecified severity; L03.115 Cellulitis of right lower limb; L03.116 Cellulitis of left lower limb; N04.9 Nephrotic syndrome with unspecified morphologic changes; E66.01 Morbid (severe) obesity due to excess calories; Z68.42 Body mass index [BMI] 45.0-49.9, adult; N25.81 Secondary hyperparathyroidism of renal origin; E83.51 Hypocalcemia; E87.8 Other disorders of electrolyte and fluid balance, not elsewhere classified; D69.6 Thrombocytopenia, unspecified; E87.0 Hyperosmolality and hypernatremia; I87.2 Venous insufficiency (chronic) (peripheral); I42.9 Cardiomyopathy, unspecified; I77.1 Stricture of artery; N39.0 Urinary tract infection, site not specified; E87.6 Hypokalemia; S22.31XA Fracture of one rib, right side, initial encounter for closed fracture; S30.1XXA Contusion of abdominal wall, initial encounter; W19.XXXA Unspecified fall, initial encounter; Y92.009 Unspecified place in unspecified non-institutional (private) residence as the place of occurrence of the external cause; I25.10 Atherosclerotic heart disease of native coronary artery without angina pectoris; I70.249 Atherosclerosis of native arteries of left leg with ulceration of unspecified site; I70.239 Atherosclerosis of native arteries of right leg with ulceration of unspecified site; E03.9 Hypothyroidism, unspecified; E78.5 Hyperlipidemia, unspecified; G43.909 Migraine, unspecified, not intractable, without status migrainosus; R68.0 Hypothermia, not associated with low environmental temperature; R29.6 Repeated falls; R15.9 Full incontinence of feces; F41.9 Anxiety disorder, unspecified; F32.9 Major depressive disorder, single episode, unspecified; Y95 Nosocomial condition; Z53.20 Procedure and treatment not carried out because of patient's decision for unspecified reasons; Z86.73 Personal history of transient ischemic attack (TIA), and cerebral infarction without residual deficits; Z87.891 Personal history of nicotine dependence; Z95.820 Peripheral vascular angioplasty status with implants and grafts; Z95.810 Presence of automatic (implantable) cardiac defibrillator; Z79.4 Long term (current) use of insulin; Z79.82 Long term (current) use of aspirin; Z91.14 Patient's other noncompliance with medication regimen; Z91.19 Patient's noncompliance with other medical treatment and regimen; Z80.9 Family history of malignant neoplasm, unspecified; Z82.49 Family history of ischemic heart disease and other diseases of the circulatory system; Z83.3 Family history of diabetes mellitus
CPT/HCPCS: 36600; 70450; 70551; 71045; 71046; 71250; 72125; 73650; 74176; 74230; 76942; 80047; 80048; 80048 91; 80053; 80069; 81003; 82306; 82330; 82728; 82803; 82948; 83036; 83540; 83605; 83735; 83880; 83970; 84100; 84443; 84466; 84480 90; 84484; 85014; 85018; 85025; 85027; 85610; 85730; 86022 90; 86850; 86900; 86901; 86920; 87040; 87070; 87075; 87086; 87106; 87205; 87641; 89051; 92526 GN; 92610 GN; 92611 GN; 93005; 93306; 94002; 94003; 94640; 94640 76; 94760; 94799; 97530 GO; 97530 GP; 99202; 99281; 99285; A6214; C1751; C9113; J0360; J0461; J0881; J1265; J1644; J1815; J1940; J2060; J2543; J2704; J3010; J3370; J7030; J7050; J7070; P9016; P9047; S0028

== ENCOUNTER 2017-09-19 19:38 | Emergency (ER) | payer OTHER ==
[~2017-09-19] VITALS: Ht 152.4 cm; Wt 89.2 kg
[~2017-09-19 19:38] MED LIST changes: +K-DUR20 MEQ PO; +SPIRONOLACTONE25 MG PO
[2017-09-19 20:23] LABS: INTER. NORMALIZED RATIO 1.2
[2017-09-19 20:30] LABS: APPEARANCE CLOUDY ((CLEAR)); BILIRUBIN NEGATIVE; BLOOD SMALL; COLOR YELLOW ((YELLOW)); GLUCOSE (STRIP) 50; KETONES NEGATIVE; LEUKOCYTES LARGE; NITRITE NEGATIVE; PROTEIN (STRIP) 100; SPECIFIC GRAVITY 1.009 (1.000-1.030); UROBILINOGEN 0.2 MG/DL (0.2-1.0)
[2017-09-19 20:31] LABS: CHLORIDE 98 mEq/L (99-109); POTASSIUM 4.4 mEq/L (3.7-5.4); SODIUM 136 mEq/L (136-147)
[2017-09-19 20:34] LABS: GLUCOSE 338 mg/dL (70-99)
[2017-09-19 20:37] LABS: CREATININE 2.4 mg/dL (0.6-1.3); GFR ESTIMATE (CALCULATED) 22 mL/min/
[2017-09-19 20:38] LABS: TROP-I INTERPRETATION NEGATIVE; TROPONIN-I 0.02 ng/mL (0.0-0.30); UREA NITROGEN (BUN) 38 mg/dL (9-23)
[2017-09-19 20:58] LABS: HEMATOCRIT 26.1 % (36.0-46.0); HEMOGLOBIN 8.2 G/DL (11.9-15.5); MCH 28.1 PG (29.0-34.0); MCHC 31.4 G/DL (30.0-36.0); MCV 89.4 FL (83-99); PLAT.SUFFICIENCY ADEQUATE; PLATELET COUNT 207 K/uL (156-360); RBC DIS.WIDTH-CV 18.3 % (11.8-14.6); RBC DIS.WIDTH-SD 59.2 % (39-53); RED BLOOD COUNT 2.92 M/uL (3.80-5.20); WHITE BLOOD COUNT 7.1 K/uL (4.1-10.2)
[2017-09-19 21:04] LABS: BACTERIA 2+ /HPF; EPITHELIAL CELLS RARE /HPF; MUCUS NONE SEEN /LPF; UCUL ADDED? YES; WHITE BLOOD CELLS 30-40 /HPF (0-5)
[2017-09-20] MEDS ORDERED: LEVAQUIN750 MG PO (00:53)
[2017-09-20 03:17] VITALS: BP 163/74
== END 2017-09-20 03:25 ==
LOC: EME → EDBD 19:38 → EME 19:38
PROVIDERS: Emergency Medicine
DX: J18.9 Pneumonia, unspecified organism (principal); J44.0 Chronic obstructive pulmonary disease with (acute) lower respiratory infection; N30.00 Acute cystitis without hematuria; S00.01XA Abrasion of scalp, initial encounter; W18.30XA Fall on same level, unspecified, initial encounter; Y92.122 Bedroom in nursing home as the place of occurrence of the external cause; I25.2 Old myocardial infarction; I50.9 Heart failure, unspecified; I11.0 Hypertensive heart disease with heart failure; Z86.74 Personal history of sudden cardiac arrest; K58.9 Irritable bowel syndrome, unspecified; K21.9 Gastro-esophageal reflux disease without esophagitis; F41.9 Anxiety disorder, unspecified; F32.9 Major depressive disorder, single episode, unspecified; E78.5 Hyperlipidemia, unspecified; E11.40 Type 2 diabetes mellitus with diabetic neuropathy, unspecified; E11.51 Type 2 diabetes mellitus with diabetic peripheral angiopathy without gangrene; Z79.4 Long term (current) use of insulin; Z79.82 Long term (current) use of aspirin; Z88.2 Allergy status to sulfonamides; Z88.8 Allergy status to other drugs, medicaments and biological substances; Z87.891 Personal history of nicotine dependence
CPT/HCPCS: 70450; 71045; 72125; 80048; 81003; 82948; 83605; 84484; 85027; 85610; 87040; 87077; 87086; 87186; 87801; 93005; 99281; 99285; J0696; J7030

== ENCOUNTER 2017-10-26 03:38 | Inpatient (IN) | payer OTHER ==
[~2017-10-26] VITALS: Ht 157.5 cm; Wt 73.3 kg
[~2017-10-26 03:38] MED LIST changes: +LEVAQUIN750 MG PO
[2017-10-26 04:04] LABS: HEMATOCRIT 29.5 % (36.0-46.0); HEMOGLOBIN 9.6 G/DL (11.9-15.5); MCH 28.5 PG (29.0-34.0); MCHC 32.5 G/DL (30.0-36.0); MCV 87.5 FL (83-99); RBC DIS.WIDTH-CV 15.7 % (11.8-14.6); RBC DIS.WIDTH-SD 49.9 % (39-53); RED BLOOD COUNT 3.37 M/uL (3.80-5.20); WHITE BLOOD COUNT 16.4 K/uL (4.1-10.2)
[2017-10-26 04:26] LABS: ALBUMIN 2.9 g/dL (3.2-4.8)
[2017-10-26 04:27] LABS: CHLORIDE 99 mEq/L (99-109); POTASSIUM 4.6 mEq/L (3.7-5.4); SODIUM 131 mEq/L (136-147)
[2017-10-26 04:29] LABS: TOTAL PROTEIN 6.9 g/dL (6.4-8.3)
[2017-10-26 04:31] LABS: PLATELET COUNT 317 K/uL (156-360); TOTAL BILIRUBIN 0.3 mg/dL (0.0-1.0)
[2017-10-26 04:32] LABS: ALKALINE PHOSPHATASE 86 IU/L (3-129)
[2017-10-26 04:34] LABS: UREA NITROGEN (BUN) 62 mg/dL (9-23)
[2017-10-26 04:35] LABS: AST (GOT) 10 IU/L (2-34)
[2017-10-26 04:36] LABS: ALT (GPT) 8 IU/L (3-49)
[2017-10-26 04:41] LABS: INTER. NORMALIZED RATIO 1.3
[2017-10-26 04:42] LABS: TROP-I INTERPRETATION NEGATIVE; TROPONIN-I 0.03 ng/mL (0.0-0.30)
[2017-10-26 04:43] LABS: PTT 26.7 SEC (25-37)
[2017-10-26 04:51] LABS: CREATININE 2.9 mg/dL (0.6-1.3); GFR ESTIMATE (CALCULATED) 17 mL/min/; GLUCOSE 433 mg/dL (70-99)
[2017-10-26] MEDS ORDERED: ALDACTONE25 MG PO (08:24)
[2017-10-26] MEDS ORDERED: SANTYL30 GM TP (08:24)
[2017-10-26] MEDS ORDERED: TORSEMIDE100 MG PO (08:25)
[2017-10-26 10:17] VITALS: BP 163/72
[2017-10-26 16:53] VITALS: BP 189/80
[2017-10-26 19:19] VITALS: BP 165/78
[2017-10-26 21:57] VITALS: BP 140/64
[2017-10-26 23:20] VITALS: BP 130/59
[2017-10-27] VITALS (9 sets, daily range): BP systolic 105–171; BP diastolic 52–80
[2017-10-27 08:09] LABS: HEMOGLOBIN 7.9 G/DL (11.9-15.5); MCHC 31.6 G/DL (30.0-36.0); MCV 88.7 FL (83-99); PLATELET COUNT 296 K/uL (156-360); RBC DIS.WIDTH-CV 16.1 % (11.8-14.6); RBC DIS.WIDTH-SD 52.4 % (39-53); RED BLOOD COUNT 2.82 M/uL (3.80-5.20)
[2017-10-27 09:18] LABS: CHLORIDE 108 MEQ/L (99-109); POTASSIUM 4.5 MEQ/L (3.7-5.4); UREA NITROGEN (BUN) 51 mg/dL (9-23)
[2017-10-27 09:21] LABS: CREATININE 2.4 MG/DL (0.6-1.3); GFR ESTIMATE (CALCULATED) 22 mL/min/; GLUCOSE 136 mg/dL (70-99); SODIUM 138 MEQ/L (136-147)
[2017-10-27 13:51] LABS: HEMATOCRIT 23.3 % (36.0-46.0); HEMOGLOBIN 7.4 G/DL (11.9-15.5); MCV 88.6 FL (83-99)
[2017-10-27 21:49] LABS: HEMATOCRIT 28.4 % (36.0-46.0); HEMOGLOBIN 9.2 G/DL (11.9-15.5); MCH 28.4 PG (29.0-34.0); MCHC 32.4 G/DL (30.0-36.0); MCV 87.7 FL (83-99); PLATELET COUNT 288 K/uL (156-360); RBC DIS.WIDTH-CV 15.5 % (11.8-14.6); RBC DIS.WIDTH-SD 50.1 % (39-53); RED BLOOD COUNT 3.24 M/uL (3.80-5.20); WHITE BLOOD COUNT 21.4 K/uL (4.1-10.2)
[2017-10-27 21:57] LABS: POTASSIUM 4.6 mEq/L (3.7-5.4); SODIUM 139 mEq/L (136-147)
[2017-10-27 22:02] LABS: CREATININE 2.2 mg/dL (0.6-1.3); GFR ESTIMATE (CALCULATED) 24 mL/min/
[2017-10-27 22:10] LABS: TROP-I INTERPRETATION NEGATIVE; TROPONIN-I 0.03 ng/mL (0.0-0.30)
[2017-10-27 22:15] LABS: CHLORIDE 110 mEq/L (99-109)
[2017-10-28 02:41] VITALS: BP 150/67
[2017-10-28 07:13] LABS: HEMOGLOBIN 10.7 G/DL (11.9-15.5); MCH 27.2 PG (29.0-34.0); MCHC 31.5 G/DL (30.0-36.0); MCV 86.5 FL (83-99); PLATELET COUNT 302 K/uL (156-360); RBC DIS.WIDTH-CV 16.2 % (11.8-14.6); RBC DIS.WIDTH-SD 51.6 % (39-53); WHITE BLOOD COUNT 21.1 K/uL (4.1-10.2)
[2017-10-28 07:16] LABS: RED BLOOD COUNT 3.93 M/uL (3.80-5.20)
[2017-10-28 07:32] LABS: TROP-I INTERPRETATION NEGATIVE; TROPONIN-I 0.03 ng/mL (0.0-0.30)
[2017-10-28 07:36] LABS: CHLORIDE 110 MEQ/L (99-109); CREATININE 2.2 MG/DL (0.6-1.3); GFR ESTIMATE (CALCULATED) 24 mL/min/; GLUCOSE 163 mg/dL (70-99); SODIUM 139 MEQ/L (136-147); UREA NITROGEN (BUN) 41 mg/dL (9-23)
[2017-10-28 07:37] LABS: VANCOMYCIN, TROUGH 21.5 MCG/ML (10-20)
[2017-10-28 07:45] LABS: GLUCOSE 115 mg/dL (70-99); UREA NITROGEN (BUN) 44 mg/dL (9-23)
[2017-10-28 08:51] VITALS: BP 136/70
[2017-10-28 15:55] VITALS: BP 126/59
[2017-10-28 19:50] VITALS: BP 141/66
[2017-10-28 23:54] VITALS: BP 146/68
[2017-10-29 03:42] VITALS: BP 134/64
[2017-10-29 06:54] LABS: HEMATOCRIT 31.1 % (36.0-46.0); HEMOGLOBIN 10.1 G/DL (11.9-15.5); MCH 28.2 PG (29.0-34.0); MCHC 32.5 G/DL (30.0-36.0); MCV 86.9 FL (83-99); PLATELET COUNT 310 K/uL (156-360); RBC DIS.WIDTH-CV 16.3 % (11.8-14.6); RBC DIS.WIDTH-SD 51.8 % (39-53); RED BLOOD COUNT 3.58 M/uL (3.80-5.20)
[2017-10-29 07:15] LABS: CHLORIDE 106 MEQ/L (99-109); CREATININE 2.2 MG/DL (0.6-1.3); GFR ESTIMATE (CALCULATED) 24 mL/min/; GLUCOSE 124 mg/dL (70-99); POTASSIUM 4.8 MEQ/L (3.7-5.4); SODIUM 135 MEQ/L (136-147); UREA NITROGEN (BUN) 35 mg/dL (9-23)
[2017-10-29 11:53] VITALS: BP 143/64
[2017-10-29 15:48] VITALS: BP 139/63
[2017-10-29 19:40] VITALS: BP 130/58
[2017-10-29 23:31] VITALS: BP 142/68
[2017-10-30 03:55] VITALS: BP 149/68
[2017-10-30 07:23] LABS: HEMATOCRIT 30.8 % (36.0-46.0); HEMOGLOBIN 9.8 G/DL (11.9-15.5); MCHC 31.8 G/DL (30.0-36.0); PLATELET COUNT 323 K/uL (156-360); RBC DIS.WIDTH-CV 16.2 % (11.8-14.6); RBC DIS.WIDTH-SD 52.6 % (39-53); WHITE BLOOD COUNT 13.1 K/uL (4.1-10.2)
[2017-10-30 07:42] LABS: CHLORIDE 105 MEQ/L (99-109); GFR ESTIMATE (CALCULATED) 27 mL/min/; GLUCOSE 139 mg/dL (70-99); POTASSIUM 4.7 MEQ/L (3.7-5.4); SODIUM 134 MEQ/L (136-147); UREA NITROGEN (BUN) 33 mg/dL (9-23)
[2017-10-30 07:48] VITALS: BP 144/63
[2017-10-30 08:16] LABS: THYROTROPIN (TSH) 8.9 MIU/L (0.4-5.5)
[2017-10-30 12:20] VITALS: BP 140/68
[2017-10-30] MEDS ORDERED: HYDROCODON-ACE1 EAC9 PO (12:38)
[2017-10-30] MEDS ORDERED: ALPRAZOLAM0.25 M2 PO (12:38)
[2017-10-30] MEDS ORDERED: ENDOCET 5-3251 EACH PO (12:38)
[2017-10-30] MEDS ORDERED: FENTANYL1 EAC4 TD (12:38)
[2017-10-30] MEDS ORDERED: LEVOTHYROXINE200 MC1 PO (14:08)
[2017-10-30] MEDS ORDERED: ROCEPHIN2 GM/50 ML IV (14:08)
[2017-10-30] MEDS ORDERED: LEVOTHYROXINE50 MCG PO (14:08)
[2017-10-30] MEDS ORDERED: LANTUS 10100 UNITS/ SC (14:09)
[2017-10-30] MEDS ORDERED: COLACE100 MG PO (14:14)
== END 2017-10-30 15:16 | DRG 854 ==
LOC: EME → EDBD 03:38 → EME 03:38 → 2EAST 07:22 → EDOF 07:22 → ENRESERV 07:25 → 2EASTP 09:48 → ENRESERV 11:34 → 2EAST 14:37
PROVIDERS: Emergency Medicine; Family Medicine; Internal Medicine; Surgery
PROC: 30233N1 Transfusion of Nonautologous Red Blood Cells into Peripheral Vein, Percutaneous Approach (ICD-10-PCS; principal; 2017-10-27)
PROC: 0Y6C0Z3 Detachment at Right Upper Leg, Low, Open Approach (ICD-10-PCS; principal; 2017-10-27)
DX: A40.8 Other streptococcal sepsis (principal); M84.474A Pathological fracture, right foot, initial encounter for fracture; Z91.19 Patient's noncompliance with other medical treatment and regimen; M86.10 Other acute osteomyelitis, unspecified site; I13.0 Hypertensive heart and chronic kidney disease with heart failure and stage 1 through stage 4 chronic kidney disease, or unspecified chronic kidney disease; I50.22 Chronic systolic (congestive) heart failure; N18.4 Chronic kidney disease, stage 4 (severe); I25.10 Atherosclerotic heart disease of native coronary artery without angina pectoris; J44.9 Chronic obstructive pulmonary disease, unspecified; F41.9 Anxiety disorder, unspecified; K21.9 Gastro-esophageal reflux disease without esophagitis; I25.2 Old myocardial infarction; E78.5 Hyperlipidemia, unspecified; E11.22 Type 2 diabetes mellitus with diabetic chronic kidney disease; E11.40 Type 2 diabetes mellitus with diabetic neuropathy, unspecified; E11.51 Type 2 diabetes mellitus with diabetic peripheral angiopathy without gangrene; E03.9 Hypothyroidism, unspecified; Z87.891 Personal history of nicotine dependence; E11.69 Type 2 diabetes mellitus with other specified complication; E11.621 Type 2 diabetes mellitus with foot ulcer; T81.89XA Other complications of procedures, not elsewhere classified, initial encounter; Y93.01 Activity, walking, marching and hiking; I70.249 Atherosclerosis of native arteries of left leg with ulceration of unspecified site; I70.234 Atherosclerosis of native arteries of right leg with ulceration of heel and midfoot; L97.529 Non-pressure chronic ulcer of other part of left foot with unspecified severity; L97.419 Non-pressure chronic ulcer of right heel and midfoot with unspecified severity; Z86.74 Personal history of sudden cardiac arrest; D64.9 Anemia, unspecified; E11.65 Type 2 diabetes mellitus with hyperglycemia; Z79.4 Long term (current) use of insulin; L03.90 Cellulitis, unspecified; F32.9 Major depressive disorder, single episode, unspecified; G43.909 Migraine, unspecified, not intractable, without status migrainosus; Z79.82 Long term (current) use of aspirin; K58.9 Irritable bowel syndrome, unspecified
CPT/HCPCS: 71045; 73700; 80048; 80048 91; 80053; 80202; 82948; 83605; 84439; 84443; 84484; 84999; 85014; 85018; 85027; 85610; 85730; 86850; 86900; 86901; 86920; 87040; 87076; 87077; 87185; 87186; 87641; 87801; 88307; 88311; 93005; 97530 GP; 99281; 99285; J0330; J0696; J1170; J1644; J1815; J1940; J2250; J2270; J2405; J2543; J3010; J3370; J7030; J7050; J7120; P9016